=== PATIENT | female | born 1990 | race Caucasian/White ===

== ENCOUNTER 2023-10-11 08:00 | Outpatient (RCR) | payer MEDICAID, SELFPAY ==
--- NOTE | 2023-10-11 10:10 | BH.SGPN.GN ---
Behaviors/Verbalizations/Mental Status: [Patient was alert and oriented, casually dressed and groomed. Eye contact was good, motor activity normal, speech within normal limits. Affect congruent, mood depressed. Thoughts linear, logical, no signs of hallucinations or delusions. ] Client Response/Progress/Benefit: [Patient was engaged and open to the discussion and appeared to respond well to the group. Patient used active listening and gave feedback during group discussion. Patient identifies that setting boundaries protects your feelings and weeds out toxic people. Patient was engaged in the activity of identifying the reasons setting boundaries is hard. Patient reported that setting boundaries is hard for her because she is afraid of getting made fun of. Patient appeared to benefit from increasing awareness of healthy strategies to improve communication. Patient will continue IOP treatment to improve daily functioning, emotion management, and prevent decompensation] Narrative Note: []
--- NOTE | 2023-10-11 13:11 | BH.COMM_ITS ---
Communication Note Communication with Client Communication Note: Met with patient to complete initial paperwork and administer the CSSR-S screening and risk assessment. Patient is mild per the CSSR-S due to historical information and recent worsening of symptoms. Patient denied current SI but states frequent thoughts of . Patient reported that she has made preparations in the past when having SI such as cleaning up the house and stated she didn't want it to be messy if she followed through so her plan would be to overdose. Patient has a history with self-injurious behaviors for a 2 week period as a teenager. Therapist conducted lethal means counseling. Patient has numerous protective factors including her fianc?, some close friends, parents, siblings, and future plans. Discussed case with Dr. Arias and Patient will be admitted to [facility] treatment with a diagnosis of Major depressive disorder, recurrent, severe without psychosis.
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
--- NOTE | 2023-10-13 09:05 | BH.SGPN.GN ---
Behaviors/Verbalizations/Mental Status: [Patient was alert and oriented, appropriately dressed and groomed. Eye contact was good, motor activity normal, speech within normal limits. Affect congruent, mood calm. Thoughts linear, logical, no signs of hallucinations or delusions. Reviewed Patients symptom tracker and the patient reports depressed mood, anxiety/panic attacks, agitation/irritability/anger, self-harm urges, and thoughts/risk of suicide within normal limits.] Client Response/Progress/Benefit: [Patient was engaged and open to the discussion. Patient reported her mood to be ?in a weird mood?.?When patient was prompted about this, she said that she woke up in a good mood but discovered one of her friends had last night and doesn?t know how to feel about this. Patient reported that this was her stressor. Patients first win is that she had gotten up in a good mood today and felt ready to ?take on the world?. Patient second win is that she made a bunch of phone calls yesterday to schedule appointments that she has needed to schedule. Patient was interactive and respectful with other group members about their mental wins and stressors. Patient benefited from the discussion by listening to feedback and giving input on her peer?s stressors and mental health wins. Patient will continue with IOP treatment to help develop healthy skills, promote mood stability, and improve distress tolerance. ?] Narrative Note: []
--- NOTE | 2023-10-13 10:15 | BH.SGPN.GN ---
Behaviors/Verbalizations/Mental Status: [] Client alert and oriented, casually dressed and groomed. Eye contact good. Motor activity appropriate. Speech within normal limits. Affect congruent, mood euthymic. Thoughts linear, logical, no signs of hallucinations or delusions. Client Response/Progress/Benefit: [] Client responded well to session AEB sharing and listening attentively to others. Group provided examples of benefits of having social support, including: ability to process emotions with, security, and confidence. Client also participated in group discussion regarding the barriers to accessing support including personal examples like: toxic people, lack of communication, and over using certain supports. Client participated in experiential activity illustrating the impact communication, boundaries, and patience play in creating healthy support systems. Client appeared to benefit from increased knowledge of the benefits of social support and greater self-awareness. Will continue IOP tx to challenge negative thought patterns, reduce negative self-talk, and improve overall functioning. Narrative Note: []
--- NOTE | 2023-10-13 11:10 | BH.SGPN.GN ---
Behaviors/Verbalizations/Mental Status: [] Client alert and oriented, casually dressed and groomed. Eye contact good. Motor activity appropriate. Speech within normal limits. Affect congruent, mood euthymic. Thoughts linear, logical, no signs of hallucinations or delusions. Client Response/Progress/Benefit: [] Client was an active participant throughout AEB contributing to discussion, providing personal examples, and taking notes. Client processed emotions felt in the activity and how they coped in the moment. Client provided input during discussion on the types of support our supports can provide. Client able to identify current support system and barriers that get in the way of using supports by drawing out their own support net. Client reported after identifying what type of supports they receive; they gained awareness that they could benefit from more social supports. Client identified steps to achieve this by being more outgoing, not complaining, and being caution of toxic people in groups. Client shared increasing social supports will help them have friends with more things in common. Client seemed to benefit from identifying the type of support client needs to work on improving. Client recommended to continue IOP tx to prevent decompensation and increase positive thought patterns. Narrative Note: []
--- NOTE | 2023-10-13 11:45 | BH.NA ---
Physical Data Vital Signs Pulse Rate: 88 Blood Pressure: 151/86 Height/Weight Height: 1.8 m Weight:: 77.111 kg Weight in Pounds: 170.0 lbs Current Medication Compliance Medication Compliance Do you take your medication as prescribed?: Yes Nutritional History Appetite Nutritional Instructions: Describe your appetite:: Good Additional nutritional information:: Client denies recent change in weight or appetite. Functional Assessment Sleep Pattern Describe any problems with sleeping: Client states she had been sleeping up to 14 hours per day, but is now sleeping between 6-8 hours. Sensory/Communication Assess Communication Problems Do you have difficulty understanding what people are saying?: No Medical Problems/History Musculoskeletal Conditions Musculoskeletal: Other (See comments) (ongoing plantar fasciitis) Pain Assessment Do you have acute or chronic pain?: Yes (bilat feet) Surgical History Surgical History Have you had any surgeries? If so, list type and date:: Yes (right foot for plantar fasciitis, wisdom teeth) Substance Abuse Substance Abuse Please describe substance abuse in the last 30 days:: Client states she has a history of heavy liquor use, and states she no longer keeps liquor in her house or she will drink it. Client states she stopped using tobacco about 3 years ago. Client reports usually nightly marijuana use. Client states she drinks 1-2 cups of coffee 2-3 times per week. Mental Status Summary Mental Status Significant Findings/Observations on Appearance and Mood:: Client is alert and oriented x 4. Client is casually groomed. Client is cooperative with assessment. Client makes fair eye contact. Client has a somewhat restricted affect. Client makes logical associations and has normal processing. Client denies delusions/hallucinations. Client denies current SI. Suicide Assessment Suicidal Ideation Are you currently or have you been suicidal in the past?: Yes Suicidal Intentional Rating Scale (SIRS): Suicidal thoughts (past) (has a history of chronic passive SI, but denies SI this day) Physician Notification Past Psychiatric History MH Treatment Hx Past Psychiatric Medications:: Lyrica (made her dizzy), Wellbutrin, Buspar, Lexapro Age of first mental health symptoms: Client states she first took medication for her mental health around age 23. Describe (age, circumstance, etc) any past hospitalizations: None. Current providers for mental health treatment (counselor, psychiatrist, rehabilitation case coordinator, etc.): psychologist at [facility], [place], counseling at [facility] Fall Risk Assessment Age Age: Less than 60 Mental Status Mental Status: Willing & able to ask for assistance when needed Physical Status Physical Status: No problems Impairments Impairments: None Elimination Elimination: Continent AND independent Gait or Balance Gait or Balance: Walks independently Hx of Falls History of falls in the past 6 months: No known history Medications/Substances Psychotropics:: Antidepressants and Stimulants Others:: Diuretics Medications/substances used within the past 24 hours or ordered to administer: 3 or more of the medications/substances listed above Total Score Total Points:: 2 RN Summary of Impressions Impressions Recommendations Impressions: Psychiatric Issues: 1. Major depressive disorder, recurrent, severe without psychosis 2. Generalized anxiety disorder 3. ADHD 4. Borderline personality disorder Level of Care How do the client's current symptoms and functional deficits support need for this level of care?: Client is a transgender female that was referred to IOP after a discussion with their counselor about possibly seeking hospitalization for mental health. Client states she recently got bad news about medical debt they owe for foot surgery they had last year, and this caused their mental health to spiral. Client reports not being able to work partially due to foot pain from plantar fasciitis and was denied SSDI. Financial concerns are a big stressor. Client does report some crying episodes, irritability, ruminations, and panic attacks at times. Client denies current SI, but does report passive SI at times. IOP will promote gains and prevent further decompensation while providing social support and skills training.
[2023-10-13 12:11] VITALS: BP 151/86; PULSE 88
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
--- NOTE | 2023-10-13 12:28 | BH.DR.ITP ---
Initial Treatment Plan Patient Information Visit Information: ADMISSION DATE: EXPECTED LOS: 4-6 weeks Problems/Symptoms Problem #1:: Depression Symptom:: Sadness, guilt, hopelessness, worthlessness, low motivation, passive thoughts of , plan for suicide, low energy. Problem #2:: Anxiety Symptom:: Worry, rumination, panic attacks
--- NOTE | 2023-10-14 09:00 | BH.SGPN.GN ---
Behaviors/Verbalizations/Mental Status: [] Eye contact is good. Motor activity is appropriate. Appearance is casual. Speech is Appropriate. Mood is anxious. Affect is congruent. Thoughts are linear and logical. No evidence of psychosis. Reviewed daily check in sheet and no reports of suicidal ideations or intent. Client Response/Progress/Benefit: [] Pt was an active participant in group discussions. Attentive. Daily symptom tracker notes 2/5 for anxiety and depression. Able to identify mental health wins and healthy habits. Pt reports working on effective communication skills with support and setting boundaries. She identified grief related to recent losses and who this has impacted her overall mental health (friend completed suicide). Making a concerted effort to utilize skills, distractions, and support since starting IOP has seen benefits. Progress noted. Benefited from group support, encouragement, and feedback. Will continue in IOP to prevent decompensation, stabilize mood, and increase healthy coping. Narrative Note: []
--- NOTE | 2023-10-14 10:10 | BH.SGPN.GN ---
Behaviors/Verbalizations/Mental Status: []Pt alert and oriented, appropriate grooming/appearance. Eye contact good. Motor activity appropriate. Speech within normal limits. Affect congruent, mood anxious. Thoughts linear, logical, no signs of hallucinations or delusions. Client Response/Progress/Benefit: []Pt was an active participant in group discussions. Attentive during psychoeducation. Contributed during interactive discussions in which peers attempted to define crisis. Pt identified examples of potential crisis. Group also worked together to identify unhealthy responses to crisis which included; isolation, self-harm, substance abuse, avoidance, and distraction. Pt identified personal warning signs as lack of self-care, racing thoughts, and loss of interest. Benefited from increased understanding of crisis and awareness of personal responses to crisis. Pt will continue IOP tx to increasing healthy coping skills, improve distress tolerance, and prevent decompensation.
--- NOTE | 2023-10-14 11:10 | BH.SGPN.GN ---
Behaviors/Verbalizations/Mental Status: []Eye contact is good. Motor activity is appropriate. Appearance is casual. Speech is Appropriate. Mood is euthymic. Affect is congruent. Thoughts are linear and logical. No evidence of psychosis. Client Response/Progress/Benefit: []Pt was an active participant in group discussions. Attentive during psychoeducation. In small group pt along with peers developed an active plan for their crisis warning signs. Pt identified three crisis warning signs as well as an action plan for each. One crisis warning sign was lack of self-care. Pt identified coping skills to help with this such as: setting reminders, opposite action to get started, and reminding herself why this could help. Benefited from increased awareness of crisis warning signs and by developing crisis intervention strategies. Will continue in IOP to prevent decompensation, improve daily functioning, and gain healthy coping skills. ? Narrative Note: []
--- NOTE | 2023-10-18 09:05 | BH.SGPN.GN ---
Behaviors/Verbalizations/Mental Status: [Patient was alert and oriented, appropriately dressed and groomed. Eye contact was good, motor activity normal, speech within normal limits. Affect congruent, mood anxious. Thoughts linear, logical, no signs of hallucinations or delusions. Reviewed Patients symptom tracker and the patient reports depressed mood, anxiety/panic attacks, agitation/irritability/anger, self-harm urges, and thoughts/risk of suicide within normal limits.] Client Response/Progress/Benefit: [Patient was engaged and open to the discussion. Patient reported her mood to be ?anxious, frustrated, and optimistic?. Patients first win is that she has been practicing positive self-talk and being nicer to herself. Patients second win is that she has been communicating better with her partner and listening to his needs. Patient shared that her fianc? was a visual merchandise manager and wasn?t used to being around a lot of people and that she is ?super clingy?. Patients stressor is her living situation. She stated she is living with her parents and they ?make it known? that she is in the way. Patient was interactive and respectful with other group members about their mental wins and stressors. Patient benefited from the discussion by listening to feedback and giving input on her peer?s stressors and mental health wins. Patient will continue with IOP treatment to help develop healthy skills, promote mood stability, and improve distress tolerance. ] Narrative Note: []
--- NOTE | 2023-10-18 10:15 | BH.SGPN.GN ---
Behaviors/Verbalizations/Mental Status: []Pt alert and oriented, causally dressed and groomed. Eye contact fair. Motor activity appropriate. Speech within normal limits. Affect constricted, mood euthymic. Thoughts linear, logical, no signs of hallucinations or delusions. Client Response/Progress/Benefit: [] Pt engaged in group session AEB listening to others, taking notes throughout, and nodding head to others comments. Group attentive during psychoeducation about emotion regulation and dysregulation. Appeared to connect with scenarios reviewed in group on emotion regulation vs dysregulation. Engaged in activity, and pt reported stepping outsider her comfort zone to be the person who could not see. Pt shared she had to rely on her teammates to guide her and pt felt like she could trust them. ?Pt benefited from session by gaining an increased understanding on the importance of managing emotions. Pt to continue IOP to prevent decompensation, improve distress tolerance skills, and improve daily functioning. ? Narrative Note: []
--- NOTE | 2023-10-18 11:51 | BH.MDN_ITS ---
Multi-Disciplinary Note Note 45-min Individual: Time Started:: 11:05 Date: 10/18/23 Purpose of session/treatment goals addressed:: Purpose of session was to talk about the treatment plan and to check in on how she has been since starting the program. Symptoms/Behavior:: Patient was very fidgety and could not sit still for very long. Patient had avoidant eye contact when talking about her family and transitioning but tried to look at the therapist. Eye Contact:: Fair Motor Activity:: Restless Appearance:: Casual Speech:: Appropriate Mood:: Anxious Affect:: Congruent Thoughts:: Linear and No evidence of hallucinations/delusions noted Staff Interventions:: thought challenging, mindfulness skills, rapport building and treatment planning Client Response:: Therapist and Patient discussed how the patient has been since starting the program last week. Patient reported feeling excited to come back to the program and enjoys the content. She shared that she had pushed herself to do an activity as a volunteer which is not like her to do. Patient thinks that she feels as if she is already improving. Therapist and patient created the treatment plan goals and objectives and talked about her main s truggles she would like to work on would be her self-talk and depression/motivation. Patient stated that she currently knows some coping skills that she will actively use but sometimes they don't work very well if at all. Patient mentioned feeling some guilt from the of her friend last week but was not ready to talk about this. Patient also shared with the Therapist that some of her family members aren't as accepting as she led to believe in her intake. She believes some of her depressive symptoms and previous thoughts of may have something to do with this. Patient shared that her father still uses the wrong pronouns and uses her name which is her name that she no longer uses. Patient shared that they had only recently in July 2023 started using the correct pronouns and her new name. Patient shared she has been transitioning and out for 5 years now. Patient stated she does not feel suicidal or have thoughts of currently. Risks/Concerns:: No suicidal ideation or intent to harm as of this date. 10/18/2023. Progress Toward Goals/Plan:: Patient made progress as evidence by working with the therapist to identify treatment plan goals. Patient also was open and honest about discussions that could be hard and set boundaries on ones she was not ready to talk about yet. Patient was honest about her family support system and said she says they are really supportive in hopes that she will believe it. Patient still endorses in depressive symptoms, anxiety, and low motivation. Therapist recommends that the patient would benefit to continue IOP treatment at this time. Time Stopped:: 11:47
--- NOTE | 2023-10-18 11:52 | BH.MTP ---
Master Treatment Plan Psychiatric Diagnoses Psychiatric Diagnoses:: 1. Major depressive disorder, recurrent, severe without psychosis 2. Generalized anxiety disorder 3. ADHD 4. Borderline personality disorder Diagnosis Code(s):: F33.2, F41.1,F90.9, F60.3 Estimated LOS Estimated LOS (in weeks):: 6 Problem/Goal #1 Problem/Goal #1 Stated Goal:: Patient will increase mood stability by reducing hopelessness, passive suicidal ideation, and negative thinking patterns caused by MDD. Description of Barriers: Patient does not have a job and is unable to work currently due to physical pain which has been directly impacting her mental health. Patient often has thoughts of as a result. Patient reports negative thinking patterns, low motivation, and hopelessness. Functional Impact: The patient is a 33-year-old biological male who identifies as a transgender female who is single but has a 42-year-old male fianc? of 4 years who is supportive of the patient although they do not live together. She was referred to the [facility] behavioral health IOP by her therapist due to worsening symptoms of anxiety and depression that make it hard for her to function. She has had issues with this for the past 6 or 7 years but it has worsened in the past year since she was fired from her job due to ongoing mental and physical health conditions. Goal Relevant Strengths/Supports: Patient is motivated, connected with outpatient psychiatry, and has the support of her fianc? and mother. Objectives Objective #1: Stated Objective: Patient will learn and utilize 2-3 new coping strategies to better manage depressive symptoms and reduce suicidal ideations as shown by a decrease of DMS-5 symptoms for depression. Interventions: Through group and individual sessions, therapist will help patient identify triggers and warning signs of depression including emotional, physical, and behavioral changes. Therapist will teach patient various coping skills to manage symptoms additional to the ones the patient currently uses and give patient tangible resources to use to regulate emotions. Therapist will use cognitive restructuring techniques and help patient gain awareness of negative thoughts that reinforce guilt and depression. Therapist will provide psychoeducation on maintenance cycles and help patient learn ways to break unhealthy maintenance cycles. Therapist will help patient incorporate behavioral activation and assist patient in setting SMART goals. Discharge Criteria: Patient will have met this goal when she can report learning and using at least 2 new coping skills to manage depressive symptoms and reduce isolation. Additionally, patient will have met this goal when patient's DSM-5 scores for depression decrease Target Date: 11/22/23 Review Date: 11/01/23 Status: Ongoing Objective #2: Stated Objective: Patient will identify 2-3 anxiety triggers and 2 new coping skills to use when feeling anxious to manage anxiety as shown by reducing DSM-5 scores for anxiety Interventions: Therapist will provide education on anxiety, avoidance behaviors, and maintenance cycles. Therapist will help patient explore personal symptoms and warning signs of anxiety. Therapist will teach patient coping skills to improve emotional regulation, mindfulness, and distress tolerance to help patient cope with anxiety as daily maintenance and in the moment. Discharge Criteria: Patient will have accomplished this goal when she can identify at least 2 triggers and report using 2 coping skills to manage anxiety for both halfway maintenance and in the moment. Additionally, patient will have accomplished this goal AEB reduction of DSM-5 scores for anxiety. Target Date: 11/22/23 Review Date: 11/01/23 Status: Ongoing Problem/Goal #2 Problem/Goal #2 Stated Goal:: Patient will increase awareness of negative self-talk by reducing negative thinking patterns and reminiscing that can be a symptom of MDD and CINDY. Description of Barriers: Patient has a history of negative self-talk which has been reinforced by select family members. Patient has many things that she loves to do and wishes she could do more however, her physical pain in her feet prevent her from doing things. Patients father makes it seem like she's faking the pain which makes her have negative thinking and negative self-talk. Patient compares herself to other and her past self on their abilities and how she cannot do them all the time if at all. Functional Impact: The patient is a 33-year-old biological male who identifies as a transgender female who is single but has a 42-year-old male fianc? of 4 years who is supportive of the patient although they do not live together. She was referred to the [facility] behavioral health IOP by her therapist due to worsening symptoms of anxiety and depression that make it hard for her to function. She has had issues with this for the past 6 or 7 years but it has worsened in the past year since she was fired from her job due to ongoing mental and physical health conditions. Goal Relevant Strengths/Supports: Patient is motivated, connected with outpatient psychiatry, and has the support of her fianc? and mother. Objectives Objective #1: Stated Objective: Patient will identify at least 2-3 negative self-talk messages used to reinforce negative core beliefs, worthlessness, and isolation and replace thoughts with balanced, realistic messages. Interventions: Therapist will help patient identify distorted, negative beliefs about self and replace with more realistic, affirmative messages. Therapist will use CBT and DBT to help patient increase insight to the connection between thoughts, emotions, and behaviors. Therapist will encourage patient to practice thought challenging. Discharge Criteria: Patient will have achieved this goal when can verbalize at least 2 cognitive distortions and effectively replace those thoughts with affirmative messages. Target Date: 11/22/23 Review Date: 11/01/23 Status: Ongoing Objective #2: Stated Objective: Patient will practice daily affirmations at least 2-3 times a day in order to retrain her brain to help reduce feelings of worthlessness and low self-esteem. Interventions: Therapist will help patient identify helpful affirmations with the client that would be most beneficial everyday so that the client may practice them. Therapist will use CBT and DBT skills to help patient decipher what she knows and what she feels and how that relates to inner dialogue. Therapist will encourage patient to practice mindfulness skills. Discharge Criteria: Patient will have achieved this goal when can patient can verbalize 2 ways her affirmations helped retrain her brain by herself by being mindful. Target Date: 11/22/23 Review Date: 11/01/23 Status: Ongoing
--- NOTE | 2023-10-20 09:05 | BH.SGPN.GN ---
Behaviors/Verbalizations/Mental Status: [Patient was alert and oriented, appropriately dressed and groomed. Eye contact was good, motor activity normal, speech within normal limits. Affect congruent, mood content. Thoughts linear, logical, no signs of hallucinations or delusions. Reviewed Patients symptom tracker and the patient reports depressed mood, anxiety/panic attacks, agitation/irritability/anger, self-harm urges, and thoughts/risk of suicide within normal limits.] Client Response/Progress/Benefit: [Patient was engaged and open to the discussion. Patient reported her mood to be ?anxious, sad, and happy?. Patients first win is that today her alarm went off and she almost stayed in bed until last minute but instead forced herself to get up and get ready. Patient admitted she has been having trouble motivating herself to do things and isolating. Patients second win is that she is working on a craft she is making for her spider. Patient said she makes ?jungle gym? courses for her spider to play in. Patients stressor is that she has been keeping herself in bed on the weekends and isolating from her family. Patient has been trying to not do this but hasn?t ?really been that successful? lately. Patient was interactive and respectful with other group members about their mental wins and stressors. Patient benefited from the discussion by listening to feedback and giving input on her peer?s stressors and mental health wins. Patient will continue with IOP treatment to help develop healthy skills, promote mood stability, and improve distress tolerance. ] Narrative Note: []
--- NOTE | 2023-10-20 10:10 | BH.SGPN.GN ---
Behaviors/Verbalizations/Mental Status: []Pt alert and oriented, casually dressed and groomed. Eye contact good. Motor activity appropriate. Speech within normal limits. Affect congruent, mood anxious and dysthymic. Thoughts linear, logical, no signs of hallucinations or delusions. Client Response/Progress/Benefit: [] Pt active participant AEB pt providing input throughout group discussion. Pt attentive during psychoeducation about defense mechanisms. Showed engagement during small group discussions and helped group identify which defense mechanisms were maladaptive, adaptive, or ?somewhere in the ling.? Pt started to work with group on identifying how each defense mechanism can impact mental health and gave examples. Pt was quiet but engaged during small group discussion, providing examples of denial and rationalization. ?Seemed to benefit from gaining awareness about the different defense mechanisms. Pt to continue IOP tx to prevent decompensation, improve daily functioning, and increase mood stability. ? Narrative Note: []
--- NOTE | 2023-10-20 11:10 | BH.SGPN.GN ---
Behaviors/Verbalizations/Mental Status: []Pt alert and oriented, neatly dressed and groomed. Eye contact good. Motor activity appropriate. Speech within normal limits. Affect congruent, mood anxious. Thoughts linear, logical, no signs of hallucinations or delusions. Client Response/Progress/Benefit: [] Pt responded well to session, participating in activity and small group discussion. Group reviewed the rest of the defense mechanisms and discussed how these are adaptive, maladaptive, or somewhere in the ling. Pt participated in the experiential activity which encouraged pts to draw a castle that portrayed their different defense mechanisms. Pt's defense mechanisms included anticipation and rationalization. Pt gained awareness that anticipation helps prevent more stress from happening at times, but pt can also overthink and make herself more anxious. Pt listened to clinical leader teach different skills to help pt?s cope with or change their defense mechanisms. Pt appeared to benefit from gaining insight to the different defense mechanisms and learning coping skills. Pt will continue IOP tx to prevent decompensation, improve daily functioning, and reduce negative thinking patterns. ?? Narrative Note: []
--- NOTE | 2023-10-20 11:51 | PCM.BH.PN_ITS ---
Progress Note Progress Note: History of Present Illness/Interim History: The patient is a 33-year-old biological male who identifies as a transgender female who is seen in follow-up at the [facility] behavioral health IOP. The patient requested to see me today as he feels he did not describe his moods or sleep accurately at the initial eval 1 week ago. The patient told staff that he had questions about medications and wanted to see me but he denies questions about medications at this time. He states that he wanted to sleep a lot normally but at times he only sleeps 5 hours a night but he states that on average in the last week or 2 he has slept 7 or 8 hours average per night. He says that sometimes he does fe el in a better mood than others and at times feels on top of the world but denies any symptoms consistent with hypomania or mickie. The rest of the symptoms are unchanged from 1 week ago and the patient continues to endorse sadness, hopelessness, lots of self-hatred, decreased motivation, guilt and passive thoughts of . The patient still has the chronic plan that if she did ever try to commit suicide she would do it by overdose or carbon monoxide poisoning. Patient denies passive or active suicidal ideation, homicidal ideation, hallucinations or delusions. Current Psychiatric Medications: [] Cymbalta 30 mg twice daily for total of 60 mg daily.; Methylphenidate 20 mg p.o. twice daily; Spravato for 1-1/2 years now which was recently increased to twice a week 2 weeks ago. Mental Status Examination: [] Patient is a 33-year-old biological male who identifies as a transgender female. The patient is dressed somewhat feminine and is ambulatory with a normal gait and has no psychomotor agitation or retardation. She is cooperative during the interview. Eye contact is good and speech is normal rate and rhythm and fluent with no pressure. Mood is depressed and anxious. Thought process is goal-directed and organized. Thought content: The patient is hopeful that the IOP will help her still. There is evidence of passive thoughts of but there is no evidence of suicidal ideation, homicidal ideation, hallucinations or delusions. There is evidence of a chronic plan for suicide. Reality testing is intact. Intelligence is average. Judgment is intact. Insight is limited but some present. Impulsivity is high. Diagnoses: [] 1. Major depressive disorder, recurrent, severe without psychosis 2. Generalized anxiety disorder 3. ADHD 4. Borderline personality disorder Plan: [] The patient will continue the IOP at [facility] as the structure, support, education and group therapy will hopefully prevent worsening of the patient's symptoms which could require hospitalization. She felt safe during the interview and if it anytime she does not feel safe she will let us know or go to the emergency room. No medication changes were made today as they were recently changed and the patient is receiving weekly Spravato treatment as an outpatient. 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 She will continue to follow-up with her outpatient providers and I will see the patient in follow-up on a regular basis while she is in the IOP.
--- NOTE | 2023-10-21 09:01 | BH.SGPN.GN ---
Behaviors/Verbalizations/Mental Status: []Client alert and oriented, casual appearance. Eye contact fair. Motor activity appropriate. Speech within normal limits. Affect congruent, mood anxious. Thoughts linear, logical, no signs of hallucinations or delusions. Reviewed client?s symptom tracker, no risk for suicidal ideation, plan, or intent. Client Response/Progress/Benefit: []Client responded well to session AEB listening to others and sharing thoughts/feelings. Client stated feeling tired, anxious, and positive today. Client identified mental health positive as doing well with keeping a schedule and trying to be more positive in the morning. Client stated she is feeling excited to spend time with her jumping spider today. Client stated continued challenges stressor is organizing and keeping up with the cleaning. Appeared to benefit from support from peers. Will continue IOP tx to increase healthy coping skills, improve daily functioning, and prevent decompensation.
--- NOTE | 2023-10-21 10:10 | BH.SGPN.GN ---
Behaviors/Verbalizations/Mental Status: []Pt alert and oriented, neatly dressed and groomed. Eye contact good. Motor activity appropriate. Speech within normal limits. Affect congruent, mood content. Thoughts linear, logical, no signs of hallucinations or delusions. Client Response/Progress/Benefit: [] Pt took notes and contributed occasionally. Attentive during psychoeducation on growth mindset. Participated during the activity. Interactive group discussion on growth mindset in which group verbalized their current fixed mindsets and how they affect their mental health. Pt shared common fixed mindset thoughts they have which included I'm never getting better; I?m not good enough; this is too hard?. These thoughts lead to feeling and staying stuck, not letting supports help, and getting defensive with feedback. Pt stated they have personally struggled with telling herself that things are impossible which makes pt want to quit. Pt benefited from increased awareness of growth mindset and fixed thoughts and how fixed thoughts impact their mental health. Will continue IOP tx to prevent decompensation, improve daily functioning, and improve emotional regulation skills. ? Narrative Note: []
--- NOTE | 2023-10-21 11:10 | BH.SGPN.GN ---
Behaviors/Verbalizations/Mental Status: []Pt alert and oriented, casually dressed and groomed. Eye contact good. Motor activity appropriate. Speech within normal limits. Affect congruent, mood anxious and depressed. Thoughts linear, logical, no signs of hallucinations or delusions. Client Response/Progress/Benefit: [] Pt was an active participant during activity and discussion AEB providing some input when prompted, connecting with peers, as well as taking notes throughout. Pt did well to remain attentive and participate as group worked on identifying characteristics and benefits of adopting a growth mindset. Worked with fellow participants in reframing the example fixed thoughts into growth mindset thoughts. Pt worked on changing own fixed thought of The world sucks to a more growth mindset thought of Even if the world is harsh at times, I know there are good people out there. Receptive of discussing benefits of growth mindset and brainstorming strategies for prompting growth-mindset. Pt appeared to benefit from working in small groups to challenge own thoughts and help peers. Pt will continue IOP tx to improve mood stability, reduce distorted thoughts, and improve daily functioning. Narrative Note: []
--- NOTE | 2023-10-26 09:05 | BH.SGPN.GN ---
Behaviors/Verbalizations/Mental Status: [] Eye contact is good. Motor activity is appropriate. Appearance is casual. Speech is Appropriate. Mood is depressed. Affect is congruent. Thoughts are linear and logical. No evidence of psychosis. Reviewed daily check in sheet and no reports of suicidal ideations or intent. Client Response/Progress/Benefit: [] Pt was an active participant in group discussions. Attentive. Daily symptom tracker notes 2/5 for anxiety and depression. Emotion for today is tired and anxious. Able to identify mental health wins and healthy habits. Pt report struggle with energy and motivation this AM stating I wanted to go back to bed. Utilized skills such as opposite action and behavioral activation which has helped increase purppse, meaning and sense of accomplishment through completion of daily tasks around his house. States rough weekend however did not elaborate to group. Overall a very brief and superficial check in today. Narrative Note: []
--- NOTE | 2023-10-26 10:10 | BH.SGPN.GN ---
Behaviors/Verbalizations/Mental Status: []Client alert and oriented, casually dressed and groomed. Eye contact fair. Motor activity appropriate. Speech within normal limits. Affect constricted, mood dysthymic. Thoughts linear, logical, no signs of hallucinations or delusions. Client Response/Progress/Benefit: []Client receptive to session AEB providing input throughout, listening attentively to others, and taking notes. Attentive throughout psychoeducation on the cognitive triangle and maintenance cycles. Engaged in group discussion reviewing the impact of daily activities and behaviors in either reinforcing unhealthy maintenance cycles and depression or assisting in reducing symptoms (?down? vs ?up? activities). Client identified common ?down? activities they engage in as: Negative self-talk, not doing chores, isolation, and lack of self care. Common ?Up? activities client identified included: Doing make-up, being around friends, coloring, affirmations, and since being spiritual. Appeared to benefit from increased awareness of current behaviors and impact these have on mental health. Recommended to continue IOP to increase consistent use of healthy coping skills, challenge distortions, and prevent decompensation.
--- NOTE | 2023-10-26 11:15 | BH.SGPN.GN ---
Behaviors/Verbalizations/Mental Status: []Eye contact is fair to good. Motor activity is appropriate. Appearance is disheveled. Speech is Appropriate. Mood is depressed. Affect is constricted. Thoughts are linear and logical. No evidence of psychosis. Client Response/Progress/Benefit: [] Pt responded well to session, attentive and engaged in group discussions and activity. Group discussed values and the benefits that knowing one's values can have on one's mental health. Pt explored own values and identified personal top values. Pt stated a personally important value is personal development and employment. Pt set a goal to improve engagement in this value. Goal identified as looking into potential jobs that will accommodate her disabilities. Pt appeared to benefit from exploring values and creating a weekly goal. Pt also reported benefitting from the activity and the group encouragement today. Will continue in IOP to prevent decompensation, improve daily functioning, and reduce isolation. ? Narrative Note: []
--- NOTE | 2023-10-27 09:00 | BH.SGPN.GN ---
Behaviors/Verbalizations/Mental Status: [Patient was alert and oriented, appropriately dressed and groomed. Eye contact was good, motor activity normal, speech within normal limits. Affect congruent, mood anxious. Thoughts linear, logical, no signs of hallucinations or delusions. Reviewed Patients symptom tracker and the patient reports depressed mood, anxiety/panic attacks, agitation/irritability/anger, self-harm urges, and thoughts/risk of suicide within normal limits.] Client Response/Progress/Benefit: [Patient was engaged and open to the discussion. Patient reported her mood to be ?anxious but happy?. Patients first win is that she has been very motivated the past couple of days and has cleaned the carpets in her room. Patients second win is that she has stated the process of growing a type of fungus to create a tonic that helps her health. Patients stressor is that since she has been so active the past couple of days, her foot syndrome has been hurting more today which feels a little discouraging. Patient was interactive and respectful with other group members about their mental wins and stressors. Patient benefited from the discussion by listening to feedback and giving input on her peer?s stressors and mental health wins. Patient will continue with IOP treatment to help develop healthy skills, promote mood stability, and improve distress tolerance. ] Narrative Note: []
--- NOTE | 2023-10-27 10:10 | BH.SGPN.GN ---
Behaviors/Verbalizations/Mental Status: [] Eye contact is good. Motor activity is appropriate. Appearance is casual. Speech is Appropriate. Mood is anxious and depressed. Affect is congruent. Thoughts are linear and logical. No evidence of psychosis. Client Response/Progress/Benefit: [] Pt actively participated in and was engaged during experiential activity. Able to relate activity to group topic of FOF, interacting with fellow participants throughout. Engaged during interactive discussion on what failure means to the group in which peers identified and defined failure. Group was able to identify impact of fear of failure on mental health identifying that it can cause isolation, procrastination, self-sabotage, and negative self-talk?. Pt described struggling with isolation and not allowing herself to feel hopeful due to FOF in the past. Attentive during interactive discussion on the role that FOF plays in mental wellness, depression, anxiety, and growth. Benefited from increased awareness of how the role that FOF plays in mental health and decision-making. Will continue in IOP to prevent decompensation, increase healthy coping, improve self-care, and to stabilize mood. Narrative Note: []
--- NOTE | 2023-10-27 13:47 | BH.MDN_ITS ---
Multi-Disciplinary Note Note 45-min Individual: Time Started:: 11:15 Date: 10/27/23 Purpose of session/treatment goals addressed:: To discuss barriers to her working, challenging negative thoughts, and identifying strengths and challenging self-talk. Eye Contact:: Good Motor Activity:: Appropriate Appearance:: Casual Speech:: Appropriate Mood:: Anxious Affect:: Congruent Thoughts:: Linear and No evidence of hallucinations/delusions noted Staff Interventions:: thought challenging, mindfulness skills, rapport building and strengths perspective Client Response:: Therapist and Patient discussed some of the clients biggest stressors which was not being able to work. Therapist asked the Patient to describe the barriers to her finding and obtaining a job. 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 Therapist and Patient talked about different types of jobs the Patient could do and the possibility of working from home. Therapist asked the Patient about her current living situation and if this was the best option for her at this present time. Patient stated for now she must live with her parents and cope with the feelings this brings until she can afford to move. Therapist and Patient talked about what has been going well the past couple of days which the client stated she has been more active and properly taking care of her hygienic needs. Patient stated that on the days where her feet hurt her the most, are the days that are hardest to deal with and it is hard to stay positive. Risks/Concerns:: No suicidal ideation or intent to harm as of this date. 10/27/2023 Progress Toward Goals/Plan:: Patient made progress as evidence by working with the therapist to identify barriers to her employment and finances. Patient also was open and honest about her thoughts and feelings on her current living situation and not being able to find a job that is accommodating. Patient was honest about her family support system and shared that her family often times makes her feel as if she is in the way. Patient made a goal of finishing her paperwork for [employer] to help her find a job and stated she would apply for the [employer] program online. Patient still endorses in depressive symptoms, anxiety, and low motivation. Therapist recommends that the patient would benefit to continue IOP treatment at this time. Time Stopped:: 12:00
== END 2023-10-31 23:59 ==
LOC: BHIOP 08:00
PROVIDERS: Referring Provider Psychiatry & Neurology Psychiatry; Visit Provider Psychiatry & Neurology Psychiatry
DX: F33.2 Major depressive disorder, recurrent severe without psychotic features (principal); F41.1 Generalized anxiety disorder; F90.9 Attention-deficit hyperactivity disorder, unspecified type; F60.3 Borderline personality disorder
CPT/HCPCS: 90792; 99213; H2012; H2020; S9480; T1002; 90834

== ENCOUNTER 2023-11-01 07:14 | Outpatient (RCR) | payer MEDICAID, SELFPAY ==
[2023-11-01 00:51] VITALS: BP 151/86; PULSE 88
--- NOTE | 2023-11-01 09:00 | BH.SGPN.GN ---
Behaviors/Verbalizations/Mental Status: [Patient was alert and oriented, appropriately dressed and groomed. Eye contact was good, motor activity normal, speech within normal limits. Affect congruent, mood anxious. Thoughts linear, logical, no signs of hallucinations or delusions. Reviewed Patients symptom tracker and the patient reports depressed mood, anxiety/panic attacks, agitation/irritability/anger, self-harm urges, and thoughts/risk of suicide within normal limits.] Client Response/Progress/Benefit: [Patient was engaged and open to the discussion. Patient reported her mood to be ?stressed and anxious?. Patients first win is that Easter ?went fine? yesterday and she got some more organization done in her room. Patients second win was that she used opposite action this morning and instead of calling in and saying she was sick, so she didn?t have to come, she came anyways and feels better about it. Patient said she would have woken up later and felt worse for not coming. Patients stressor is still her living situation and feel like she is a bother to her family. Patient was interactive and respectful with other group members about their mental wins and stressors. Patient benefited from the discussion by listening to feedback and giving input on her peer?s stressors and mental health wins. Patient will continue with IOP treatment to help develop healthy skills, promote mood stability, and improve distress tolerance. ] Narrative Note: []
--- NOTE | 2023-11-01 10:10 | BH.SGPN.GN ---
Behaviors/Verbalizations/Mental Status: []Pt alert and oriented, casually dressed and groomed. Eye contact good. Motor activity appropriate. Speech within normal limits. Affect congruent, mood content. Thoughts linear, logical, no signs of hallucinations or delusions. Client Response/Progress/Benefit: [] Pt connected with topic of anxiety and participated throughout, providing input and taking notes. Participated throughout interactive discussion defining anxiety and identifying cognitive and physiological symptoms of anxiety. Group discussed how anxiety can prevent them from trying new things. Pt identified physical signs of anxiety as increased heart rate, itchiness, and sweaty. Pt identified safety behaviors as cancelling plans, sleeping, and distracting with others. Benefited from increased awareness and insight on anxiety and its impact. Pt will continue IOP tx to prevent decompensation, improve daily functioning, and increase coping repertoire. Narrative Note: []
--- NOTE | 2023-11-01 11:15 | BH.SGPN.GN ---
Behaviors/Verbalizations/Mental Status: []Pt alert and oriented, disheveled appearance. Eye contact fair. Motor activity appropriate. Speech within normal limits. Affect congruent, mood depressed. Thoughts linear, logical, no signs of hallucinations or delusions. Client Response/Progress/Benefit: [] Pt was an active participant AEB pt providing input and listening attentively to peers. Attentive during psychoeducation on mindfulness coping skills and their impact on reducing anxiety and improving overall mental health wellness. Group was able to identify self-soothing and mind-based coping skills which included: 5-senses, meditation, deep breathing, journaling, thought challenging, and progressive muscle relaxation. Pt also participated with peers in practicing mindfulness skills in session. Pt would like to work on using a calendar to keep track of her appointments and tasks. Appeared to benefit from increasing repertoire of anxiety reduction skills. Pt will continue in IOP tx to prevent decompensation, improve self-care practices, and reduce negative thinking patterns. Narrative Note: []
--- NOTE | 2023-11-01 13:21 | BH.TPR ---
Treatment Plan Review Demographics Date of Admission:: 10/11/23 Date of Treatment Plan Review:: 11/01/23 Admitting Diagnoses:: 1. Major depressive disorder, recurrent, severe without psychosis 2. Generalized anxiety disorder 3. ADHD 4. Borderline personality disorder Diagnosis Code(s):: F33.2, F41.1,F90.9, F60.3 Current Diagnoses:: 1. Major depressive disorder, recurrent, severe without psychosis 2. Generalized anxiety disorder 3. ADHD 4. Borderline personality disorder Diagnosis Code(s):: F33.2, F41.1,F90.9, F60.3 Patient Status Patient's Response to Treatment:: Patients response to treatment is fair as evidence by the patient verbalizing that she feels that she has made progress. However, patients DSM-5 overall scores increased slightly. Patient stated she was shocked to here this but still feels that things are better. Patient has been consistent with her goals and reports to be practicing her skills daily. Patient is interactive in not only group sessions but as well as in her individual session. Status of Current Problems and Symptoms: Patient endorses feelings of stress, depression, and anxiety. Patient has been struggling with living at her parents house and moving her room to the basement where there is little to no privacy. Patient stated her environment is a big and main factor in her symptoms and is aware and admits that her choice to move to the basement is causing some of these worsening symptoms. However, patient states that her ability to cope with said symptoms have improved hence why she feels she has made progress. Progress Problem #1: Problem Name:: Depression, thoughts of , anxiety Status of Goals:: Objective 1 is in progress. Per the DSM-5 scale, her depression score increased by 1 point, and her anxiety score increased by 3 points. Patient reported that although her symptoms of worsened, her ability to cope with them she feels has improved. Patient wanted to start using her coping skills more efficiently by either learning new ones or enhancing old ones. Objective 2 is in progress. Patient has identified that a big trigger and stressor is her living environment. However, the patient believes she has no other option other than living with her parents and is resistant to moving. Team Recommendations:: Treatment team recommends that patient continue working on this goals so patient can continue to manage symptoms. Patient is recommended to weigh the pros and cons to her environmental situation when she is feeling down and to reach out to her fianc? when she feels she needs support. Problem #2: Problem Name:: Negative Self-Talk and Thinking Patterns Status of Goals:: Objective 1 is in progress. Per the DSM-5 scale, her mickie has decreased by 1 point, her anger has decreased by 2 points, and her thoughts of actual harm have reduced to 0 points. Patient reported that she has been consciously reaffirming herself daily when negative self-talk starts. She said she talks to herself more like a friend than belittling everything that she does. Objective 2 is in progress. Patient has acknowledged that her thinking patterns are an automatic response to external events in some cases and has been challenging these thoughts the knowledge to help retrain her brain. Patient believes this has helped herself be more successful using her coping skills in general. Team Recommendations:: Treatment team recommends that the patient continue to work on this goal to maximize her ability to speak kindly to herself. Patient is recommended to thought challenge in the moment and write or speak affirmations.
--- NOTE | 2023-11-03 09:00 | BH.SGPN.GN ---
Behaviors/Verbalizations/Mental Status: [Patient was alert and oriented, appropriately dressed and groomed. Eye contact was good, motor activity normal, speech within normal limits. Affect congruent, mood anxious. Thoughts linear, logical, no signs of hallucinations or delusions. Reviewed Patients symptom tracker and the patient reports depressed mood, anxiety/panic attacks, agitation/irritability/anger, self-harm urges, and thoughts/risk of suicide within normal limits.] Client Response/Progress/Benefit: [Patient was engaged and open to the discussion. Patient reported her mood to be ?anxious?. Patients stressor is that her dad is having surgery today and that means her dad will be home for the next couple of days. Patient isn?t worried about the surgery she said but that she will have less privacy. Patients first win is that although she had little sleep last night, she used opposite action and came to group although she wanted to lie and say she was sick. Patients second win is that she has been practicing being nicer to herself and talking to herself more as a friend. Patient was interactive and respectful with other group members about their mental wins and stressors. Patient benefited from the discussion by listening to feedback and giving input on her peer?s stressors and mental health wins. Patient will continue with IOP treatment to help develop healthy skills, promote mood stability, and improve distress tolerance. ] Narrative Note: []
--- NOTE | 2023-11-03 10:10 | BH.SGPN.GN ---
Behaviors/Verbalizations/Mental Status: [] Eye contact is good. Motor activity is appropriate. Appearance is casual. Speech is Appropriate. Mood is anxious/irritable. Affect is congruent. Thoughts are linear and logical. No evidence of psychosis. Client Response/Progress/Benefit: [] Pt receptive to session AEB contributing to small group discussion, as well as listening attentively to others, and taking notes. Worked with group to brainstorm the positive and negative aspects of stress on physical and mental health. Group did well to identify the benefits of stress as well as the impact of distress on performance, relationships, and mental health. Pt identified their personal top stressors as: politics, mean people, relationships, health, and money. Pt seemed to benefit from increased awareness of current stressors and impact stress has on mental health. Will continue in IOP to prevent decompensation, increase healthy coping, and improve functioning. Narrative Note: []
--- NOTE | 2023-11-05 09:05 | BH.SGPN.GN ---
Behaviors/Verbalizations/Mental Status: [] Eye contact is good. Motor activity is appropriate. Appearance is casual. Speech is Appropriate. Mood is depressed. Affect is congruent. Thoughts are linear and logical. No evidence of psychosis. Reviewed daily check in sheet and pt reports 1/5 for suicidal ideations and 0/5 for intent. Long-standing hx of passive SI. Client Response/Progress/Benefit: [] Pt participated at times during the group discussion. Attentive. Engaged and laughing at times with peers. Daily symptom tracker notes 2/5 for depression/anxiety and 3/5 for irritability. Therapist asked pt if she would like to share and she stated I need more time to process. Therapist came back to patient later to ask if she would like to share again and she stated everything has already been discussed. Appeared in good spirits however did not elaborate any further. Limited progress noted today. Benefited from group support, encouragement, and feedback. Will continue in IOP to prevent decompensation, increase healthy coping skills, and improve functioning. Narrative Note: []
--- NOTE | 2023-11-05 10:15 | BH.SGPN.GN ---
Behaviors/Verbalizations/Mental Status: [] Eye contact is good. Motor activity is appropriate. Appearance is casual. Speech is Appropriate. Mood is depressed, apathetic. Affect is congruent. Thoughts are linear and logical. No evidence of psychosis. Client Response/Progress/Benefit: []Pt engaged participant AEB listening to others, engaging in activity, and providing feedback at times. Attentive during psychoeducation and provided insight into obstacles that impede mental wellness. Pt shared with group current mental health reality and desired mental health reality. Stating she would like to have healthier supports and more direction. Identified barriers to desired reality include: concentration, low motivation, and perspective. Benefited from taking look at current mental health state and obstacles for progress. Pt to continue IOP tx to improve mood stability, reduce reliance on maladaptive coping, and prevent decompensation. Narrative Note: []
--- NOTE | 2023-11-05 11:15 | BH.SGPN.GN ---
Behaviors/Verbalizations/Mental Status: [] Eye contact is fair. Motor activity is appropriate. Appearance is casual. Speech is Appropriate. Mood is dysthymic. Affect is constricted. Thoughts are linear and logical. No evidence of psychosis Client Response/Progress/Benefit: [] Pt was an engaged participant in group discussion and activity. Worked with group to identify strategies to help overcome barriers and obstacles to desired reality. Group developed strategies for the common barriers. Identified personal barriers to desired reality and choose one obstacle to work. Pt stated she wants to work on barrier of negative self-talk by starting to say positive affirmations and say nice things out herself. Pt seemed to benefit from increased repertoire of healthy coping skills/strategies to overcome common barriers to moving forward. Pt is to continue IOP to increase healthy coping skills, challenge distortions, and prevent decompensation.
--- NOTE | 2023-11-08 09:00 | BH.SGPN.GN ---
Behaviors/Verbalizations/Mental Status: [Patient was alert and oriented, appropriately dressed and groomed. Eye contact was good, motor activity normal, speech within normal limits. Affect congruent, mood sad. Thoughts linear, logical, no signs of hallucinations or delusions. Reviewed Patients symptom tracker and the patient reports moderate to severe in depressed mood, moderate in anxiety/panic attacks, agitation/irritability/anger, low/moderate in thoughts of suicide and low in self-harm urges. Patient does not report risk of suicide. Patient will be checked in on to assess for safety.] Client Response/Progress/Benefit: [Patient was engaged and open to the discussion. Patient reported her mood to be ?depressed?. Patients first win is that she came to group although she has been in a lower mindset. Patients second win is that she has been doing her best not to give up. Patients stressor is living with her family still because she is not getting a lot of privacy. Patient was interactive and respectful with other group members about their mental wins and stressors. Patient benefited from the discussion by listening to feedback and giving input on her peer?s stressors and mental health wins. Patient will continue with IOP treatment to help develop healthy skills, promote mood stability, and improve distress tolerance. ] Narrative Note: []
--- NOTE | 2023-11-08 11:10 | BH.SGPN.GN ---
Behaviors/Verbalizations/Mental Status: []Pt alert and oriented, casually dressed and groomed. Eye contact fair. Motor activity appropriate. Speech within normal limits. Affect congruent, mood dysthymic. Thoughts linear, logical, no signs of hallucinations or delusions. Client Response/Progress/Benefit: [] Pt was engaged during discussion and willing to complete the worksheet challenging them to develop a personal SMART goal. Pt chose the goal of finishing organizing room and clean once a week. Pt stated this will declutter her mind. Pt identified procrastination, motivation, and low energy as potential barriers. Identified solutions such as making schedule, setting reward system, and having good sleep routine. Pt receptive to identifying solutions for these barriers and willing to begin working on this goal. Benefited from this group by developing a short-term SMART goal related to mental health. Will continue IOP tx to improve daily functioning, increase healthy coping, and prevent decompensation.
--- NOTE | 2023-11-08 13:20 | BH.MDN_ITS ---
Multi-Disciplinary Note Note 45-min Individual: Time Started:: 10:20 Date: 11/08/23 Purpose of session/treatment goals addressed:: talking about progress with the treatment plan, overall functioning, and reflection of treatment. Eye Contact:: Fair Motor Activity:: Appropriate Appearance:: Casual Speech:: Appropriate Mood:: Anxious Affect:: Congruent Thoughts:: Linear and No evidence of hallucinations/delusions noted Staff Interventions:: thought challenging, mindfulness skills, rapport building and treatment planning Client Response:: Therapist and Patient in previous session talked about the Patients overall mood and the increase in her scores on her DSM-5 self rated sheet. Patient stated she was shocked to hear that the overall score increased because she stated she thought she was doing better. Therapist and Patient talked about how she could be doing better while still having slightly elevated scores in some areas and decreases in others. Patient had missed her Sparato shot last week would could be contributing her decrease in ability to manage stress and have a clearer head space. Patient stated she has been friendlier to herself and practicing her affirmations. Patient shared that she will be having bottom surgery in less than 60 days. Patient and Therapist talked about her emotions around this and her support systems. Patient admitted her family is unaware she is having this surgery because it is none of their business and they haven't asked. Patient shared that if they find out she wouldn't hide it but didn't know what she would say to them. Patient stated she was still struggling with feeling like she is in the way at her parents house. Therapist and patient talked about ways she could cope with this by weighing the options of where her room is in the house and with thought challenges. Patient shared that she looks forward to coming to group because of her isolation and how she wants to find ways to be more integrated with people after discharge. Patient and Therapist talked about discharge in 2 weeks or so and the patient seemed open to this idea. Risks/Concerns:: No suicide ideation or risk as of this date. 11/08/2023 Progress Toward Goals/Plan:: Patient made progress as evidence by working with the therapist to challenge her thoughts on the increase of her overall scores on her DSM-5 assessment sheet. Patient also was open and honest about her thoughts and feelings on her current living situation and ways to cope with the feelings. Patient shared her thoughts and feelings on her obtaining bottom surgery and plans on creating a plan of what to say to her family if they find out before she is ready. Patient accomplished her goal from last session and submitted her paperwork for [employer] to help her find a job. She stated she would contact the [employer] program today by calling the number provided by the website. Patient made a goal of scheduling her appointment with her doctor to obtain her Spar[employer] shot. Patient still endorses in depressive symptoms, anxiety, and low self-esteem. Therapist recommends that the patient would benefit to continue IOP treatment at this time. Time Stopped:: 11:05
--- NOTE | 2023-11-09 09:05 | BH.SGPN.GN ---
Behaviors/Verbalizations/Mental Status: [] Eye contact is poor. Motor activity is appropriate. Appearance is casual. Speech is Appropriate. Mood is anxious. Affect is congruent. Thoughts are linear and logical. No evidence of psychosis. Reviewed daily check in sheet and no reports of suicidal ideations or intent. Client Response/Progress/Benefit: [] Pt was an active participant in group discussions. Attentive. Daily symptom tracker notes 08/06 for depression, anxiety, and irritability which is improvement from baseline. Reports functioning and mood are improved. Engaged in self-care and finding purpose and meaning in her spirituality and art. Insight on how consistent engagement in activities with are meaningful and provide purpose can benefit mental health. Continues to reports difficulty with emotional regulation and negative thinking due to medical issues, financial strain and stress at home. Emotion for today is confused. Progress noted. Benefited from group support, encouragement, and feedback. Will continue in IOP to prevent decompensation, stabilize mood, and increase healthy coping. Narrative Note: []
--- NOTE | 2023-11-09 10:10 | BH.SGPN.GN ---
Behaviors/Verbalizations/Mental Status: []Eye contact is good. Motor activity is appropriate. Appearance is casual. Speech is Appropriate. Mood is depressed. Affect is congruent. Thoughts are linear and logical. No evidence of psychosis. Client Response/Progress/Benefit: []Pt was an engaged participant AEB listening attentively to others, taking notes, and providing feedback in small group discussions. Attentive during psychoeducation AEB by note taking and providing some input. Pt worked along with peers in small groups to define inappropriate guilt and appropriate guilt. Interactive discussion on examples of both inappropriate and appropriate guilt. Pt able to connect impact inappropriate guilt can have on MH. Pt gave an example of taking on other?s emotions as inappropriate guilt. Appeared to benefit from increased awareness of guilt and the differences between appropriate and inappropriate guilt. Will continue IOP tx to increase mood stability, reduce isolation, and gain independence Narrative Note: []
--- NOTE | 2023-11-09 11:15 | BH.SGPN.GN ---
Behaviors/Verbalizations/Mental Status: []Pt alert and oriented, casually dressed and groomed. Eye contact good. Motor activity appropriate. Speech within normal limits. Affect congruent, mood anxious and depressed. Thoughts linear, logical, no signs of hallucinations or delusions. Client Response/Progress/Benefit: [] Pt engaged participant AEB listening attentively to others and providing input throughout group. Pt worked within their small group to identify strategies to manage inappropriate guilt. Identified a personal example of inappropriate guilt as blaming herself for not making progress as fast as she wants. Insight this cues a fear of disappointing others and fear of not being good enough. Pt wants to work on combatting inappropriate guilt by challenging distortions, maintaining her boundaries, and focusing on self-compassion. Pt seemed to benefit from learning about strategies to manage appropriate and inappropriate guilt. Pt will continue IOP tx to promote mood stability, improve self-care, and prevent decompensation. Narrative Note: []
--- NOTE | 2023-11-10 09:00 | BH.SGPN.GN ---
Behaviors/Verbalizations/Mental Status: [Patient was alert and oriented, appropriately dressed and groomed. Eye contact was good, motor activity normal, speech within normal limits. Affect congruent, mood sad. Thoughts linear, logical, no signs of hallucinations or delusions. Reviewed Patients symptom tracker and the patient reports moderate in depressed mood, anxiety/panic attacks, agitation/irritability/anger, low to moderate in thoughts of suicide, and low in risk of suicide. Patient does not report symptoms of self-harm urges. Patient will be checked in on to assess for safety.] Client Response/Progress/Benefit: [Patient was engaged and open to the discussion. Patient reported her mood to be ?depressed and stressed?.?Patients first win was that although she did not get a lot of sleep last night, she didn?t hesitate to come to group today like she had last week. Patients second win was that she spent time with her spider which improved her mood. Patients stressor is that she may be missing her Sparato shot for the 3rd time today which is causing her to feel distressed. Patient was interactive and respectful with other group members about their mental wins and stressors. Patient benefited from the discussion by listening to feedback and giving input on her peer?s stressors and mental health wins. Patient will continue with IOP treatment to help develop healthy skills, promote mood stability, and improve distress tolerance. ? ?] Narrative Note: []
--- NOTE | 2023-11-10 10:05 | BH.SGPN.GN ---
Behaviors/Verbalizations/Mental Status: [] Eye contact is good. Motor activity is appropriate. Appearance is casual. Speech is Appropriate. Mood is depressed/irritable. Affect is congruent. Thoughts are linear and logical. No evidence of psychosis. Client Response/Progress/Benefit: [] Pt did not engage with group discussions however was attentive AEB taking notes throughout session. Connected with the topic of pitfalls and listened to group discussion on internal and external barriers that prevent from choosing a healthier path to mental wellness. Group worked together to identify examples of personal internal pitfalls and pt identified theirs as rushing, isolation, negative self-talk, and shutting down. Pt benefited from group as pt learned to better identify and normalize potential barriers to improving mental health symptoms. Pt also gained awareness of the difference between external triggers and self-sabotaging behaviors. Will continue in IOP to maintain safety, improve functioning, and prevent decompensation. Narrative Note: []
--- NOTE | 2023-11-16 09:05 | BH.SGPN.GN ---
Behaviors/Verbalizations/Mental Status: [] Eye contact is good. Motor activity is appropriate. Appearance is casual. Speech is Appropriate. Mood is depressed/irritable. Affect is congruent. Thoughts are linear and logical. No evidence of psychosis. Reviewed daily check in sheet and no reports of suicidal ideations or intent. Client Response/Progress/Benefit: [] Pt participated at times during the group discussion. Attentive. Emotion for today is depressed. Struggles to identify mental healthy wins and healthy habits. Regression due to increased physical pain which has resulted in decreased functioning. Lack of progress on goals and utilizing skills. Limited progress noted per pt report. Benefited from group support, encouragement, and feedback. Will continue in IOP to prevent decompensation, increase healthy coping, and to improve functioning. Narrative Note: []
--- NOTE | 2023-11-16 10:15 | BH.SGPN.GN ---
Behaviors/Verbalizations/Mental Status: [] Eye contact is good. Motor activity is appropriate. Appearance is casual. Speech is Appropriate. Mood is euthymic. Affect is full. Thoughts are linear and logical. No evidence of psychosis. Client Response/Progress/Benefit: [] Pt was an active participant, AEB taking notes and providing input in group discussions and activities. Attentive during psychoeducation. Pt engaged during interactive discussion in which the group defined self-care and discussed its benefits. Group discussed benefits of self-care which included; better self-esteem, increased energy, feeling refreshed, increased motivation, reduce stress, and boost mood. Pt participated in small group where they worked to identify common self-care ?myths? or obstacles. Pt identified her physical health as an obstacle to self-care. Benefited from increased awareness of self-care, its benefits, and the consequences of not utilizing self-care strategies. Will continue IOP to maintain safety, increase healthy coping skills, and prevent decompensation. Narrative Note: []
--- NOTE | 2023-11-16 11:20 | BH.SGPN.GN ---
Behaviors/Verbalizations/Mental Status: []Pt alert and oriented, neatly dressed and groomed. Eye contact good. Motor activity appropriate. Speech within normal limits. Affect congruent, mood anxious. Thoughts linear, logical, no signs of hallucinations or delusions. Client Response/Progress/Benefit: [] Pt engaged participant AEB completing self-assessment worksheet and providing input throughout discussion. Pt completed worksheet identifying current self-care practices and what self-care activities Pt wants to start using. Pt selected emotional self-care to begin practicing more consistently. Pt plans to do this by practicing positive self-talk consistently. Appeared to benefit from completing the self-care evaluation and gaining insights into current self-care practices, as well as identifying areas in which Pt would like to improve upon. Pt will continue IOP tx to promote mood stability, increase motivation, and improve daily functioning. Narrative Note: []
--- NOTE | 2023-11-17 09:00 | BH.SGPN.GN ---
Behaviors/Verbalizations/Mental Status: [ Patient was alert and oriented, appropriately dressed and groomed. Eye contact was good, motor activity normal, speech within normal limits. Affect incongruent, mood content. Thoughts linear, logical, no signs of hallucinations or delusions. Reviewed Patients symptom tracker and the patient reports low in depressed mood, anxiety/panic attacks, and agitation/irritability/anger. Patient does not report symptoms of self-harm urges/behaviors, or thoughts/risk of suicide.] Client Response/Progress/Benefit: [Patient was engaged and open to the discussion. Patient reported her mood to be ?depression but trying to suppress it?. Patients first win is that although she woke up depressed, she was able to get up and get ready and do her makeup today. Patients second win was that she was able to meditate last night and bring herself some peace. Patients stressor is that she is experiencing some chest pain from coughing too much. Patient was interactive and respectful with other group members about their mental wins and stressors. Patient benefited from the discussion by listening to feedback and giving input on her peer?s stressors and mental health wins. Patient will continue with IOP treatment to help develop healthy skills, promote mood stability, and improve distress tolerance. ] Narrative Note: []
--- NOTE | 2023-11-17 10:10 | BH.SGPN.GN ---
Behaviors/Verbalizations/Mental Status: [] Eye contact is good. Motor activity is appropriate. Appearance is casual. Speech is Appropriate. Mood is dysthymic. Affect is congruent. Thoughts are linear and logical. No evidence of psychosis. Client Response/Progress/Benefit: [] Pt was an active participant in group discussions. Attentive during psychoeducation on the 4 communication styles (Passive, Passive-Aggressive, Aggressive, and Assertive) and the obstacles to effective communication. Contributed during interactive discussion on the benefits of communicating effectively which included; having one's needs met, helping, building connection with others, decreases stress and uncertainty, improved relationships, and increased trust. Worked well in small group in which pt and peers identified the benefits and disadvantages to the different communication styles. Pt identified connecting with passive aggressive and passive communication styles depending on who she is communicating with. Benefited from increased understanding of communication styles and how these can impact effective communication. Will continue in IOP to prevent decompensation, improve mood stability, and improve functioning. Narrative Note: []
--- NOTE | 2023-11-17 12:01 | PCM.BH.PN_ITS ---
Progress Note Progress Note: History of Present Illness/Interim History: The patient is a 33-year-old biological male who identifies as a transgender female who is single but has a 42-year-old male fianc? of 4 years and is seen in follow-up at the [facility] behavioral health IOP. The patient has a history of anxiety, depression and ADHD and currently lives with her parents and brother. Patient continues to have ongoing stressors involving housing, financial and ongoing discomfort from plantar fasciitis that makes her unable to hold a job. The patient has been receiving Spravato treatment but has had difficulties with transportation and has missed the past 2 weeks sessions. The patient states that these issues have been resolved and she is resuming Spravato treatment in a few days. She feels she has benefited from the IOP and feels more able to manage herself. She feels that she is able to be a little nicer to herself. According to the staff the patient is engaged in the program and consistent in attendance but has made somewhat limited progress. Mood remains depressed with occasional hopelessness and occasional passive thoughts of . She denies any suicidal ideation and denies any self-harm thoughts or actions. She remains sober from alcohol. She also denies homicidal ideation, hallucinations, delusions. Current Psychiatric Medications: [] Cymbalta 30 mg p.o. twice daily. Methylphenidate of unknown dose daily. Spravato (missed 2 weeks of this but is resuming in a few days). Mental Status Examination: [] The patient is a 33-year-old transgender female who is dressed like a female with make-up and long hair. The patient has a tongue piercing. She is ambulatory with a normal gait and has no psychomotor agitation or retardation. She is cooperative and pleasant during interview. Eye contact is good and speech is normal rate and rhythm and fluent with no pressure. Mood is depressed. Thought process is goal-directed and organized. Thought content: The patient is hopeful that when she review resumes her Spravato she will continue to improve. There is evidence of chronic passive thoughts of . There is no evidence of suicidal ideation, homicidal ideation, hallucinations or delusions. Reality testing is intact. Intelligence is average. Judgment is intact. Insight is limited but some present. Impulsivity is moderate to high. Diagnoses: [] 1. Major depressive disorder, recurrent, severe without psychosis 2. Generalized anxiety disorder 3. Borderline personality disorder 4. ADHD 5. Primary support, work and housing issues Plan: [] The patient will continue the IOP at [facility] as the structure, support, education and group therapy will hopefully prevent worsening of the patient's symptoms which could require hospitalization. She felt safe during the interview and if it anytime she does not feel safe she will let us know or go to the emergency room. No medication changes were made today and she will continue and resume her Spravato treatment. She will continue to stay sober from alcohol and decrease her marijuana use. She will continue to follow- up with her outpatient providers and I will see the patient in follow-up on a regular basis while she is in the IOP. Patient may discharge in the next few weeks if her condition remains stable.
--- NOTE | 2023-11-17 12:43 | BH.MDN_ITS ---
Multi-Disciplinary Note Note 45-min Individual: Time Started:: 11:05 Date: 11/17/23 Purpose of session/treatment goals addressed:: talking about discharge, future goals/plans, and maintance Eye Contact:: Good Motor Activity:: Appropriate Appearance:: Casual Speech:: Appropriate Mood:: Euthymic Affect:: Congruent Thoughts:: Linear and No evidence of hallucinations/delusions noted Staff Interventions:: mindfulness skills, rapport building, discharge planning and goal setting Client Response:: Therapist and Patient discussed how the Patients headspace has been since last they spoke. Patient reported her mood to be feeling better and more positive because of some recent developments in her life. Therapist and Patient discussed the patients goal regarding the [employer] program and the patient reported to have followed through with contacting them. She stated this has given her some more hope about obtaining finances which has helped her to think with a more clear head. Patient has reported that she still has not had her spravato treatment but said she should be getting the next one this coming Wednesday (11/19/2023). Therapist and Patient discussed the Patients thoughts on discharge next week (11/22/2023) and future goals that go along with that. Therapist and Patient started a list of things that she wants to accomplish or continue such as starting at [employer], obtaining a new car, and practicing self-care as a daily routine. Risks/Concerns:: No suicide ideation or risk as of this date. 11/17/2023 Progress Toward Goals/Plan:: Progress has been made as evident by Patient following through with getting into contact with the [employer] in her area and signing up for their program. 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 She reported that they also agreed that she could transfer and work at different [employer] stores if she chose to. Patient also shared that she has paid off her car so that she can scrap it and use the money as a down payment for a new vehicle. Patient seemed motivated by this since she would no longer be reliant on others driving her around, giving her more freedom and options regarding her environment and workplace. Patient has reported being more mindful and practices daily affirmations and has started doing meditation every night. Patient reported this success has been able to help her be conscious of her cognitive distortions when things go wrong or when she is triggered. Patient has shown interest on information regarding the [employer] [facility] as well as the DBT groups through [employer]. Patient still endorses in some anxiety, and depressive symptoms. Therapist recommends that the patient would benefit to continue IOP treatment at this time. Time Stopped:: 11:50
--- NOTE | 2023-11-18 09:03 | BH.SGPN.GN ---
Behaviors/Verbalizations/Mental Status: [] Eye contact is fair. Motor activity is appropriate. Appearance is casual. Speech is Appropriate. Mood is euthymic. Affect is congruent. Thoughts are linear and logical. No evidence of psychosis. Reviewed daily check in sheet and no reports of suicidal ideations or intent. Client Response/Progress/Benefit: [] Pt participated at times during the group discussion. Attentive. Daily symptom tracked notes 08/06 for anxiety and 08/06 for depression. Emotion for today is happy. Able to identify mental health wins and healthy habits. Pt reported current stressor is being in pain due to having bruised ribs. Pt stated mental health positive as working on making homemade Kombucha. Additional positive as working on crafting and writing recipes. Benefited from group support, encouragement, and feedback. Will continue in IOP to increase consistent use of healthy coping skills, challenge distortions, and prevent decompensation.
--- NOTE | 2023-11-18 10:10 | BH.SGPN.GN ---
Behaviors/Verbalizations/Mental Status: []Pt alert and oriented, neatly dressed and groomed. Eye contact good. Motor activity appropriate. Speech within normal limits. Affect congruent, mood anxious. Thoughts linear, logical, no signs of hallucinations or delusions. Client Response/Progress/Benefit: [] Pt was an active participant in group discussion. Attentive during psychoeducation on the [facility] [employer] (Thoughts, Behaviors, Emotions). Engaged in group discussion on how thoughts and behaviors can contribute to maintaining adverse feelings, such as depression, anxiety, and irritability. Completed personal maintenance cycle for depression and shared that she struggles with thoughts that things will never get better. Shared this maintains depression and anxiety cycles. Pt benefited from increased awareness of the basis of CBT therapy as well as specific thoughts that are impacting pt's progress. Will continue in IOP tx to promote mood stability, reduce negative thinking, and improve daily functioning. Narrative Note: []
--- NOTE | 2023-11-18 11:10 | BH.SGPN.GN ---
Behaviors/Verbalizations/Mental Status: []Pt alert and oriented, casually dressed and groomed. Eye contact good. Motor activity appropriate. Speech within normal limits. Affect congruent, mood depressed and anxious. Thoughts linear, logical, no signs of hallucinations or delusions. Client Response/Progress/Benefit: []Pt responded well to session, contributing and attentive throughout discussion. Pt identified a negative thought that has kept them stuck. Pt's thought was I'll never feel better.? Pt reported when they think this way, they get depressed and anxious resulting in giving up before allowing things to really help. Pt worked to reframe the thought by finding more rational, realistic ways to look at the thoughts and then processed them within group setting. Pt reframed the thought to ?Every step helps moving towards finding what is wrong and what can help?. Pt appeared to benefit from practicing challenging negative thinking. Pt will continue IOP tx to prevent decompensation, increase mood stability, and continue to promote application of behavior activation skills. ? Narrative Note: []
--- NOTE | 2023-11-19 11:06 | BH.COMM ---
Documented by User: Erinn Ernst 11/19/23 11:08 Communication Note Communication with Client Communication Note: Len was checked in on after 1st group on 11/10/2023 to ensure safety due to her answers on her daily risk assessment. She reported that she was not actually suicidal but that she had thoughts of more than normal. Documented by User: Alma Whatley 11/22/23 14:00 Communication Note Communication with Client Communication Note: Pt was checked in on after 1st group on 11/10/2023 to ensure safety due to her answers on her daily risk assessment. She reported that she was not actually suicidal but that she had thoughts of more than normal.
--- NOTE | 2023-11-22 11:10 | BH.SGPN.GN ---
Behaviors/Verbalizations/Mental Status: [] Client alert and oriented, casually dressed and groomed. Eye contact good. Motor activity appropriate. Speech within normal limits. Affect congruent, mood content. Thoughts linear, logical, no signs of hallucinations or delusions. Client Response/Progress/Benefit: [] Client responded well to session, attentive. Did well to process activity and work with group to relate the strategies used to overcome barriers in the activity to managing change in own life. Client identified a change they would like to make as improving her perspective. Client identified currently being in contemplation stage for this particular change. Client stated their goal is to practice using daily positive self-talk. Appeared to benefit from identifying a small goal to work towards. Client will d/c from IOP tx and continue outpatient tx to prevent decompensation, and promote continued skill application. Narrative Note: []
--- NOTE | 2023-11-22 12:44 | BH.DS_ITS ---
Documented by User: Erinn Ernst 11/22/23 13:45 Discharge Summary Demographics Date of Admission:: 10/11/23 Discharge Date: 11/22/23 Presenting Problems at Admission:: The patient is a 33-year-old biological male who identifies as a transgender female who is single but has a 42-year-old male fianc? of 4 years who is supportive of the patient although they do not live together. She was referred to the [facility] behavioral health I OP by her therapist due to worsening symptoms of anxiety and depression that make it hard for her to function. She has had issues with this for the past 6 or 7 years but it has worsened in the past year since she was fired from her job due to ongoing mental and physical health conditions. Patient has a history also of plantar fasciitis and had surgery on the right foot for this in December 2022 but has had no improvement in the pain and this also has made it hard to work and is made it hard to walk for enjoyment which was a form of coping for the patient before. Patient feels like a burden to her family and friends because she is unable to provide financially and healthcare costs are also adding up. The patient endorses sadness, hopelessness, lots of self-hatred, decreased motivation, guilt and passive thoughts of . The patient denies passive or active suicidal ideation but does admit that she has a plan that if she ever did try to commit suicide she would do a by overdose or carbon monoxide poisoning. She endorses low energy and poor concentration. Her primary support she has her fianc? or a female friend. Discharge Diagnoses:: 1. Major depressive disorder, recurrent, severe without psychosis 2. Generalized anxiety disorder 3. ADHD 4. Borderline personality disorder Diagnosis Code(s):: F33.2, F41.1,F90.9, F60.3 Reason for Discharge:: Patient has completed her IOP treatment goals as evidence by the patients overall score decreasing by 21%. Patient had a 100% decrease in suicidal ideation, and 67% decrease in anger, and a 33% decrease in repetitive thoughts and behaviors. Patient always showed attentiveness and was receptive to learning during group and individual sessions. The patient has reported that she feels like she is able to cope easier with the stressors in her day to day life. Patient has obtained better coping skills for her depression and anxiety such as mindfulness, opposite action, and using thought challenges. Patient plans to start working at [employer] and has been given resources for DBT group through [facility] and information on the [facility]. Patient will continue with outpatient ángela constantino and her psychiatrist, Aris Campbell, through the [facility] for medication management. Treatment Progress During Treatment & Response: Len has responded well to treatment as evidence by Len consistently attending IOP sessions and her ability to cope with life stressors improving despite an increase in her DSM-5 scores at her review. Len always showed attentiveness and was receptive to learning during group and individual sessions. Issues Still to be Addressed:: combating negative self-talk, mindfulness, and u sing her coping skills. Discharge Recommendations/Instructions:: Patient is already in an outpatient counseling center through [facility] with Zahida Galvez. She is encouraged to continue this treatment and continue seeing her psychiatrist Aris Campbell through the [facility] for medication management. Patient has been given resource information on the DBT group through [facility] and is encouraged to attend if the Patient desires. Discharge Handout Documented by User: Alma Whatley 11/22/23 13:59 Discharge Summary Treatment Progress During Treatment & Response: Pt has responded well to treatment as evidence by Pt consistently attending IOP sessions and her ability to cope with life stressors improving despite an increase in her DSM-5 scores at her review. Pt always showed attentiveness and was receptive to learning during group and individual sessions. Discharge Handout
--- NOTE | 2023-11-22 12:45 | BH.AFTERPLAN ---
Documented by User: Erinn Ernst 11/22/23 13:57 Aftercare Plan Demographics Treatment End Date:: 11/22/23 Psychiatrist Office #:: [phone] Medications Home Medications esketamine intranasal .q week 10/13/23 estradiol 2 mg tablet 2 mg PO BID 10/13/23 medroxyprogesterone .ROUTE DAILY 10/13/23 methylphenidate PO BID 10/13/23 spironolactone 50 mg tablet (Aldactone) 50 mg PO BID 10/13/23 duloxetine 30 mg capsule,delayed release (Cymbalta) 30 mg PO BID 30 days #60 caps 11/17/23 Plan Details Progress/Aftercare Plan Details:: Patient has completed her IOP treatment goals as evidence by the patients overall score decreasing by 21%. Patient had a 100% decrease in suicidal ideation, and 67% decrease in anger, and a 33% decrease in repetitive thoughts and behaviors. Patient always showed attentiveness and was receptive to learning during group and individual sessions. The patient has reported that she feels like she is able to cope easier with the stressors in her day to day life. Patient has obtained better coping skills for her depression and anxiety such as mindfulness, opposite action, and using thought challenges. Patient plans to start working at [employer] and has been given resources for DBT group through [facility] and information on the [employer]. Patient will continue with outpatient counseling and her psychiatrist, Aris Campbell, through the [facility] for medication management. Strategies for Success:: 1. Opposite Action! Continuing to remind yourself that even just doing one small thing will help motivate you and improve your mood. You may allow yourself time to rest but don't stay stuck there! 2. Self-Care! Remember that you are worth giving yourself self-love and self-compassion. And if we don't allow ourselves these things, then we will burn out hard and fast. 3. Mindfulness! You are only one person, and you can do so much. Give yourself andrés and reflect on the bigger picture of situations that become overwhelming. Weighing your options when faced with a decisions by listing pros and cons can be helpful. 4. Remember that progress isn't linear and that it is okay to feel bad or off! Reminding yourself that its just a bad situation not a bad day, week, or life will do wonders! Your mindset of situations will be a big automation driver on how you feel and your perspective of the world and your life. 5. Doing our best is going to look different every day! Appointments Appointments/Referrals to Other Services:: Patient is already in an outpatient counseling center through [facility] with Andrés Galvez. She is encouraged to continue this treatment and continue seeing her psychiatrist Aris Campbell through the [facility] for medication management. Patient has been given resource information on the DBT group through [facility] and is encouraged to attend if the Patient desires. Documented by User: Alma Whatley 11/22/23 14:00 Aftercare Plan Demographics Psychiatrist:: Edith Arias [facility]/I[facility] Therapist:: Alma Whatley Therapist Phone #:: [phone] Medications Home Medications esketamine intranasal .q week 10/13/23 estradiol 2 mg tablet 2 mg PO BID 10/13/23 medroxyprogesterone .ROUTE DAILY 10/13/23 methylphenidate PO BID 10/13/23 spironolactone 50 mg tablet (Aldactone) 50 mg PO BID 10/13/23 duloxetine 30 mg capsule,delayed release (Cymbalta) 30 mg PO BID 30 days #60 caps 11/17/23
--- NOTE | 2023-11-22 13:58 | BH.COMM ---
Documented by User: Erinn Ernst 11/22/23 14:00 Communication Note Communication with Client Communication Note: I met with Len briefly because she wanted more information on DBT. Len was interested in [facility] DBT groups and the [facility] and was given information for both of these. Finally, I showed her the decrease in her DSM-5 self rated scores. Len was pleased with the decrease. Documented by User: Alma Whatley 11/22/23 14:02 Communication Note Communication with Client Communication Note: I met with Pt briefly because she wanted more information on DBT. Pt was interested in [facility] D[facility] groups and the [facility] and was given information for both of these. Finally, I showed her the decrease in her DSM-5 self rated scores. Pt was pleased with the decrease.
--- NOTE | 2023-11-23 09:05 | BH.SGPN.GN ---
Behaviors/Verbalizations/Mental Status: [] Eye contact is good. Motor activity is appropriate. Appearance is casual. Speech is Appropriate. Mood is anxious. Affect is full. Thoughts are linear and logical. No evidence of psychosis. Reviewed daily check in sheet and no reports of suicidal ideations or intent. Client Response/Progress/Benefit: [] Pt was an active participant in group discussion. Attentive. Daily symptom tracker notes 2/5 for depression and anxiety. Share with the group that today is her last day in [facility] and she is set to discharge successfully today. Reports feeling nervous and upset about this change however overall feels she has made progress. Notes improved engagement in daily activities and hobbies which has decreased isolation and improved mental health. She identified groups and psychoeducation regarding behavioral activation and opposite-action as being most beneficial to her. Progress noted. Benefited from group support, encouragement, and feedback. Will be discharged from [facility] today. Narrative Note: []
== END 2023-11-22 12:24 | disposition home or self-care (01) ==
LOC: BHIOP 07:14
PROVIDERS: Referring Provider Psychiatry & Neurology Psychiatry; Visit Provider Psychiatry & Neurology Psychiatry
DX: F33.2 Major depressive disorder, recurrent severe without psychotic features (principal); F41.1 Generalized anxiety disorder; F60.3 Borderline personality disorder; F90.9 Attention-deficit hyperactivity disorder, unspecified type
CPT/HCPCS: 99213; H2012; H2020; S9480; 90834

== ENCOUNTER 2025-06-04 08:00 | Outpatient (RCR) | payer MEDICAID, SELFPAY ==
--- NOTE | 2025-06-04 10:10 | BH.SGPN.GN ---
Behaviors/Verbalizations/Mental Status: []Eye contact good, Motor activity is appropriate, Appearance is neat. Speech appropriate. Mood depressed. Affect constricted. Thoughts are linear and logical. No evidence of psychosis. Client Response/Progress/Benefit: [] Pt was an active participant during interactive group discussions. Attentive during discussion of the different types of boundaries (rigid, porous, healthy) Took notes and provided input. Contributed to the discussion on defining boundaries and the benefits and barriers to them. Active participant in the boundary continuum activity. Identified boundary type as more porous and pt struggles to walk away from things that are not healthy. Group discussed mental health benefits to establishing boundaries, and situations in which lessening boundaries are appropriate. Pt benefited from increased awareness and insight on the importance of boundary setting. Pt will continue in IOP to prevent decompensation, improve daily functioning, and increase use of healthy coping skills. ??? Narrative Note: []
--- NOTE | 2025-06-04 11:10 | BH.SGPN.GN ---
Behaviors/Verbalizations/Mental Status: []Pt alert and oriented, casually dressed and groomed. Eye contact fair. Motor activity appropriate. Speech within normal limits. Affect congruent, mood dysthymic. Thoughts linear, logical, no signs of hallucinations or delusions. Client Response/Progress/Benefit: [] Client responded well to session AEB listening attentively to peers, providing input, as well as taking notes throughout. Group discussed different styles of boundary setting. Participated in small group discussion brainstorming various strategies for improving healthy boundary setting. Pt took time to complete reflection on which skills would like to implement to improve boundaries. Seemed to benefit from increased awareness of how different boundary styles can impact mental health. Pt stated she learned she allows others to walk all over her intellectual boundaries and she struggles with standing up for herself. Will continue IOP tx prevent decompensation, increase consistent use of skills, and improve daily functioning.
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
--- NOTE | 2025-06-06 09:00 | BH.SGPN.GN ---
Behaviors/Verbalizations/Mental Status: [] Pt alert and oriented, Casually dressed and groomed. Eye contact good. Motor activity appropriate. Speech within normal limits. Affect congruent, mood anxious. Thoughts linear, logical, no signs of hallucinations or delusions. Reviewed pt?s symptom tracker today, reported 2/5 for suicidal ideation and 1/5 for plan, and intent. Client is future oriented. Does not appear to be imminent risk to self. 06/06/25. Client Response/Progress/Benefit: []Pt was an active participant in group discussions. Attentive. Per patients daily symptom tracker, pt indicates a 3/5 for depression and a 4/5 for anxiety, with 5 being severe. Pt's first mental health positive was speaking up during group, stating that she was trying to come up with excuses before group to not participate. Pt's other mental health positive was rescuing two beetles that she found at a pet store who she feels were being mistreated. Pt's stressor is trying to communicate with her partner who she reports is very defensive. Pt was supportive and attentive to others in the group. Pt seemed to benefit from support from peers. Will continue IOP tx to promote healthy coping mechanisms, reduce negative thinking patterns, and prevent decompensation.
--- NOTE | 2025-06-06 10:10 | BH.SGPN.GN ---
Behaviors/Verbalizations/Mental Status: [] Pt alert and oriented, casually dressed and groomed. Eye contact good. Motor activity appropriate. Speech within normal limits. Affect congruent, mood euthymic. Thoughts linear, logical, no signs of hallucinations or delusions. Client Response/Progress/Benefit: [] Pt was an active participant in group discussions and activity. Attentive during psychoeducation. Pt along with peers were able to identify several negatives on the picture given to the group. Pt and peers also identified positives in the picture and made the connect that finding positives is much more difficult. Interactive discussion on the definition of perspective, how perspective is formed, and why perspective is important in treatment. Pt along with peers also identified that perspective can either motivate and encourage treatment or be a barrier to receiving help. Will continue in IOP to promote gains, further decrease anxiety, and increase self-confidence. Narrative Note: []
--- NOTE | 2025-06-06 14:16 | BH.MTP_ITS ---
Documented by User: Mee Max 06/20/25 08:57 Master Treatment Plan Patient Information Program Physician:: Dr. Duenas Primary Therapist:: Mee Max Psychiatric Diagnoses Psychiatric Diagnoses:: Major Depressive Disorder, Generalized Anxiety Disorder, ADHD, Borderline Personality Disorder Problem/Goal #1 Problem/Goal #1 Stated Goal:: Client will reduce depressive symptoms, feelings of worthlessness, and anhedonia due to Major Depressive Disorder through Intensive Outpatient Program Description of Barriers: Client has good insight into her triggers and symptoms, identifying lack of community and support as one of the main stressors in her life. Client identified using negative self-talk, and feelings of worthlessness that contribute to her depressive symptoms and lack of connection with others. Client stated that feelings like a burden to friends and family, and not being able to work increase anxiety and depression. Functional Impact: Client is a 35 year old transgender female. Client is engaged to her 42 year old fianc? of 6 years. The client was initially referred to [facility] by her therapist in 2023, but has re-admitted herself this year due to ongoing struggles with depression and anxiety that are affecting her daily functioning. Client reports that her anxiety and depressive symptoms have resurfaced in the past year feeling that she hasn't made much progress after discharging from the program. The client reports struggling with chronic pain due to plantar fasciitis which makes her unable to find a job as she cannot stand for long periods of time. The client had surgery on her right foot in 2022, but reports that the pain has not lessened. The client also has been diagnosed with ADHD which she reports makes it extremely difficult for her to concentrate on tasks such as work. The client is currently unemployed due to her mental and physical health issues. The client stated that she feels like a burden to her family who she lives with and currently supports her financially. Client endorsees feelings of worthlessness, sadness, self-hatred, low motivation, poor c oncentration, and passive thoughts of . The patient endorses some suicidal ideation, and states that she does have a plan if she intended commit suicide, however she does not endorse any intent on following through with this plan, stating that she does not have the desire to kill herself. Goal Relevant Strengths/Supports: Client is motivated and willing to work on her mental health. Client is kind and genuine, showing good insight into where and how she wants to improve. Client reports feeling hopeful about attending [facility] and shows good retention of information and coping skills from her previous time in [facility]. Client shows good self motivation for improvement, stating that she made the decision to stop drinking, and successfully stopped on her own. She identifies her fianc? and an online friend as supports and accountability. Objectives Objective #1: Stated Objective: Client will identify at least 2-3 negative self-talk messages used to reinforce feelings of worthlessness and replace thoughts with more realistic, affirmative messages. Interventions: Therapist will help client identify distorted, negative beliefs about self and replace with more realistic, affirmative messages. Discharge Criteria: Client will have achieved this goal when she can verbalize at least 2 negative self-talk messages and effectively replace those thoughts with affirmative messages. Target Date: 07/12/25 Review Date: 07/12/25 Status: Open Objective #2: Stated Objective: Client will increase extracurricular activity to at least one additional activity per week. Interventions: Therapist will help client explore activities they enjoy engaging in and help connect to those activities. Therapist will help client identify barriers that have prevented engagement in more activity. Discharge Criteria: Client will have achieved this goal when she participates in one extracurricular activity. Target Date: 07/12/25 Review Date: 07/12/25 Status: Open Problem/Goal #2 Problem/Goal #2 Stated Goal:: Stabilize anxiety level while increasing ability to function on daily basis. Description of Barriers: Client has good insight into her triggers and symptoms, identifying lack of community and support as one of the main stressors in her life. Client identified using negative self-talk, and feelings of worthlessness that contribute to her depressive symptoms and lack of connection with others. Client stated that feelings like a burden to friends and family, and not being able to work increase anxiety and depression. Functional Impact: Client is a 35 year old transgender female. Client is engaged to her 42 year old fianc? of 6 years. The client was initially referred to [facility] by her therapist in 2023, but has re-admitted herself this year due to ongoing struggles with depression and anxiety that are affecting her daily functioning. Client reports that her anxiety and depressive symptoms have resurfaced in the past year feeling that she hasn't made much progress after discharging from the program. The client reports struggling with chronic pain due to plantar fasciitis which makes her unable to find a job as she cannot stand for long periods of time. The client had surgery on her right foot in 2022, but reports that the pain has not lessened. The client also has been diagnosed with ADHD which she reports makes it extremely difficult for her to concentrate on tasks such as work. The client is currently unemployed due to her mental and physical health issues. The client stated that she feels like a burden to her family who she lives with and currently supports her financially. Client endorsees feelings of worthlessness, sadness, self-hatred, low motivation, poor concentration, and passive thoughts of . The patient endorses some suicidal ideation, and states that she does have a plan if she intended commit suicide, however she does not endorse any intent on following through with this plan, st ating that she does not have the desire to kill herself. Goal Relevant Strengths/Supports: Client is motivated and willing to work on her mental health. Client is kind and genuine, showing good insight into where and how she wants to improve. Client reports feeling hopeful about attending IOP and shows good retention of information and coping skills from her previous time in IOP. Client shows good self motivation for improvement, stating that she made the decision to stop drinking, and successfully stopped on her own. She identifies her fianc? and an online friend as supports and accountability. Objectives Objective #1: Stated Objective: Client will learn and implement 2-3 calming skills to reduce overall anxiety and manage anxiety symptoms. Interventions: Therapist will teach calming/relaxation skills and how to apply these skills to everyday life. Discharge Criteria: Client will have achieved this goal when they can verbalize and consistently utilize at least 2 calming strategies that client reports helps decrease anxious symptoms. Target Date: 07/12/25 Review Date: 07/12/25 Status: Open Objective #2: Stated Objective: Client will learn and implement 2 conflict resolution skills to manage interpersonal problems. Interventions: Therapist will teach client appropriate conflict resolution skills using modeling and behavior rehearsal. Discharge Criteria: Client will have achieved this goal when they can verbalize and has practicied one conflict resolution skill. Target Date: 07/12/25 Review Date: 07/12/25 Status: Open Documented by User: Diandra Augustine [facility] 06/29/25 10:46 Master Treatment Plan Psychiatric Diagnoses Diagnosis Code(s):: F33.2 Estimated LOS Estimated LOS (in weeks):: 6 Problem/Goal #1 Objectives Objective #1: Target Date: 07/16/25 Review Date: 07/02/25 Objective #2: Target Date: 07/16/25 Review Date: 07/02/25 Problem/Goal #2 Objectives Objective #1: Target Date: 07/16/25 Review Date: 07/02/25 Objective #2: Target Date: 07/16/25 Review Date: 07/02/25
--- NOTE | 2025-06-06 14:19 | BH.MDN_ITS ---
Multi-Disciplinary Note Note 45-min Individual: Time Started:: 11:10 Date: 06/06/25 Purpose of session/treatment goals addressed:: Purpose of session was to build rapport, gather updated background information, and start discussion of goals. Eye Contact:: Good Motor Activity:: Appropriate Appearance:: Casual Speech:: Appropriate Mood:: Anxious and Depressed Affect:: Congruent Thoughts:: Linear and No evidence of hallucinations/delusions noted Staff Interventions:: thought challenging, CBT techniques, mindfulness skills, rapport building and goal setting Client Response:: The client was alert and attentive during the session. She was able to share updated information about her presenting problems, psychiatric history, and social supports. The client reports coming back to [facility] for worsening depression and anxiety. The client shared that she has felt her symptoms getting worse, as she has not been able to work or go out on her own due to chronic pain and lack of transportation. The client stated that she knows her parents see her as a burden, and that they do not understand her and her interests. The client reported frustration at her parents for lack of communication and support. The client endorsed loneliness, feelings of wo rthlessness, and trouble concentrating. Client stated that her ADHD makes it very difficult for her to focus on non-physical tasks such as sitting at a desk, which contributes to her current lack of employment. The client reported her fianc? as a good support for her, but stated that she feels that she cannot talk with him about everything she is struggling with as he tries to fix her problems instead of listen. The client became tearful when talking about her current living and family situation, stating that she knows her parents see her as a disappointment, and that she is the black sheep of the family. Client is receptive to challenging anxiety, negative self-talk, and decreasing depressive symptoms, stating that she is hopeful about her time in IOP. Client also was receptive to finding ways to increase socialization and community. Risks/Concerns:: Client stated suicidal ideation in the past, and as recent as this week, but denies any plan or intent as of 06/06/25. She reports having family and her fianc? as protective factors. Progress Toward Goals/Plan:: no progress noted yet as it is the client's first day back in [facility]. Client appears motivated and engaged in goal setting and treatment. Client shared a history of depression and anxiety. She currently endorses, anxiety, depressive symptoms, and feelings of worthlessness. Client identified treatment goals as reducing depressive symptoms, increasing self- confidence, and increasing community connection. Client to continue IOP to prevent decompensation, decrease negative thinking patterns, and increase coping mechanisms. Time Stopped:: 12:00
--- NOTE | 2025-06-08 07:44 | BH.PSY.EVA_ITS ---
Intake Vital Signs 10/13/23 12:11 06/08/25 07:45 Height 5 ft 11 in 5 ft 11 in Intake Allergies No Known Allergies Allergy (Verified 10/13/23 11:52) Medications ?Medication ?Instructions ?Recorded ?Confirmed ?Type esketamine intranasal .q week 10/13/23 History estradiol 2 mg tablet 2 mg PO BID 10/13/23 4 History medroxyprogesterone .ROUTE DAILY 10/13/23 Histo ry methylphenidate PO BID 10/13/23 History spironolactone 50 mg tablet 50 mg PO BID 10/13/2309/30 History (Aldactone) duloxetine 30 mg capsule,delayed 30 mg PO BID 30 days #60 caps 11/17/23 10/13/23 Rx release (Cymbalta) [facility] () Medical History (Updated 06/08/25 @ 08:[address] Memo Gilliam, ) Borderline personality disorder ADHD Generalized anxiety disorder Major depressive disorder, recurrent severe without psychotic features HPI () History of Present Illness HPI: Estefany Rodriguez is a 35 year old transgender female who presents today for new patient evaluation. Sleep: Interest: Guilt: Energy: Concentration: Appetite: Psychomotor: Suicide: Memory: Anxiety: Obsessions: Compulsions: Juanita: PTSD: Psychosis: denies history of auditory or visual hallucinations, denies disorganized thoughts, denies disorganized speech Developmental History Developmental History: Siblings - Born/Raised - Education - Living Situation - Legal Issues - Employment - Other Substance Use History Nicotine- Alcohol- Marijuana- Stimulants- Opioids- Other- Assessment & Plan () Assessment & Plan (1) Major depressive disorder, recurrent severe without psychotic features: (2) ADHD: (3) Generalized anxiety disorder: (4) Borderline personality disorder: Plan - The patient will start the IOP in Behavioral [facility] at [facility] as the structure, support, education and group therapy with ideally prevent worsening of patient's symptoms which could result in admission to higher level of care such as [facility] or psychiatric admission. I have reasonable expectation that the patient will make timely and significant improvement in the presenting acute symptoms as a result of the program and eventually be discharged to a lower level of care.
--- NOTE | 2025-06-08 07:45 | BH.DR.ITP ---
Initial Treatment Plan Patient Information Visit Information: ADMISSION DATE: EXPECTED LOS: 4-6 weeks
--- NOTE | 2025-06-11 09:00 | BH.SGPN.GN ---
Behaviors/Verbalizations/Mental Status: [] Pt alert and oriented, Casually dressed and groomed. Eye contact good. Motor activity appropriate. Speech within normal limits. Affect congruent, mood anxious. Thoughts linear, logical, no signs of hallucinations or delusions. Reviewed pt?s symptom tracker today, denies suicidal ideation, plan, and intent.06/11/25 Client Response/Progress/Benefit: []Pt was an active participant in group discussions. Attentive. Per patients daily symptom tracker, pt indicates a 3/5 for depression and a 4/5 for anxiety, with 5 being severe. Pt shared her mental health positive as feeling happy to be at group, stating that she feels that the connection and support is something that she was needing. Her other mental health positive was finishing a personal project that she had been working on. Pt stated that her stressor is something coming up this weekend that she is very anxious for, but did not elaborate on what it was. Pt was supportive and attentive to others in the group. Pt seemed to benefit from support from peers. Will continue IOP tx to promote healthy coping mechanisms, improve confidence, and prevent decompensation.
--- NOTE | 2025-06-11 10:10 | BH.SGPN.GN ---
Behaviors/Verbalizations/Mental Status: []Pt alert and oriented, casually dressed and groomed. Eye contact good. Motor activity appropriate. Speech within normal limits. Affect congruent, mood depressed. Thoughts linear, logical, no signs of hallucinations or delusions. Client Response/Progress/Benefit: []Pt participated during small group discussions. Attentive during psychoeducation about defense mechanisms. Showed engagement during small group discussions and helped group identify which defense mechanisms were maladaptive, adaptive, or ?somewhere in the ling.? Pt worked with small group on identifying how each defense mechanism can impact mental health and gave examples. Pt stated she learned that she struggles with minimization at times.?Pt reported benefit from normalizing why people use maladaptive defense mechanisms. Seemed to benefit from gaining awareness about the different defense mechanisms. Pt to continue IOP tx to prevent decompensation, improve daily functioning, and gain healthy coping skills. Narrative Note: []
--- NOTE | 2025-06-11 11:10 | BH.SGPN.GN ---
Behaviors/Verbalizations/Mental Status: []Pt alert and oriented, disheveled appearance. Eye contact good. Motor activity appropriate. Speech within normal limits. Affect congruent, mood content. Thoughts linear, logical, no signs of hallucinations or delusions. Client Response/Progress/Benefit: [] Pt responded well to session, participating in activity and small group discussion. Group reviewed the rest of the defense mechanisms and discussed how these are adaptive, maladaptive, or somewhere in the ling. Pt's defense mechanisms included rationalization, anticipation, sublimation, and intellectualization. Shared that she noticed that for some people anticipation is healthy, but for pt it is maladaptive. Pt listened to batch plant operator teach different skills to help pt?s cope with or change their defense mechanisms. Pt appeared to benefit from gaining insight to the different defense mechanisms and learning coping skills. Pt will continue IOP tx to prevent decompensation, improve daily functioning, and reduce isolation. Narrative Note: []
--- NOTE | 2025-06-13 09:57 | BH.MDN ---
Multi-Disciplinary Note Note 60-min Individual: Time Started:: 09:05 Date: 06/13/25 Purpose of session/treatment goals addressed:: Purpose of session was to build rapport, talk about building healthy communication, and start discussion of goals. Eye Contact:: Good Motor Activity:: Appropriate Appearance:: Casual Speech:: Appropriate Mood:: Anxious Affect:: Congruent Thoughts:: Linear, Logical and No evidence of hallucinations/delusions noted Staff Interventions:: thought challenging, CBT techniques, mindfulness skills and rapport building Client Response:: The client was alert and attentive during the session. She shared that she has been feeling frustrated with her fianc?, and that they had an argument during the weekend. Client stated that her fianc? talks too much, and does not give her space to join the conversation, making the client feel unheard, uncared for, and frustrated. She stated that she knows her fianc? does not do this on purpose, but she has told him multiple times about her feelings, and she states that he has only gotten a little better, but not much. Client reports that she plans on having a conversation with her fianc? about this, but feels some anxiety at how to start the conversation without coming off as angry. The client responded well to working through the conversation with the clinician, coming up with enriquez talking points, grounding techniques to use if she begins to feel frustrated, and how she plans to respond if her fianc? responds negatively. The client also expressed wanting to spend quality time with her fianc? that is not spent talking about only his interests or hobbies. The client was receptive to the therapist providing psychoeducation on love languages, and stated that she would like to bring this up to her fianc? in their conversation to help facilitate more connection. The client shared that they felt anxious about this conversation, but shared that she felt less anxious and more prepared after the session. Risks/Concerns:: Client stated suicidal ideation in the past, but denies any thoughts, plan, or intent as of 06/13/25. Progress Toward Goals/Plan:: Client was able to clearly express their thoughts and feelings about the conversation with their fianc?, and come up with helpful techniques to utilize. The client was also able to recognize when they might get frustrated during the conversation, and prepare grounding/calming techniques to use. The client expressed wanting to have this conversation to deepen the connection between her and her fianc?, which aligns with her goal to increase connection with others. Client to continue IOP to prevent decompensation, decrease negative thinking patterns, and increase healthy coping mechanisms. Time Stopped:: 09:57
--- NOTE | 2025-06-13 10:10 | BH.SGPN.GN ---
Behaviors/Verbalizations/Mental Status: []Pt alert and oriented, casually dressed and fair groomed. Eye contact good. Motor activity appropriate. Speech within normal limits. Affect congruent, mood dysthymic. Thoughts linear, logical, no signs of hallucinations or delusions. Client Response/Progress/Benefit: [] Pt was an active participant AEB taking notes and engaging in group activity. Connected with the topic of pitfalls and listened to group discussion on barriers that prevent from choosing a healthier path to mental wellness. Group worked together to identify examples of personal pitfalls. These examples included; having unrealistic expectations, not trusting, not asking for help, and shutting down. Pt benefited from group as pt learned to better identify potential barriers to improving mental health symptoms. Pt will continue IOP tx to improve daily functioning, improve healthy coping skills, and prevent decompensation.
--- NOTE | 2025-06-13 10:10 | BH.SGPN.GN ---
Behaviors/Verbalizations/Mental Status: []Pt alert and oriented. Casually dressed and groomed, eye contact good. Motor activity appropriate. Speech within normal limits. Affect congruent. Mood calm. Thoughts linear, logical, no signs of hallucinations or delusions. Client Response/Progress/Benefit: [] Pt was an active participant, taking notes and engaging in group discussion and activity. Connected with the topic of pitfalls and participated in group discussion about barriers that prevent from choosing a healthier path to mental wellness. Pt participated in discussion on pitfalls, what they are, and ways that we stay stuck in them. Group worked together to identify examples of internal and external pitfalls, including depression, isolation, and suicidal thoughts. Pt benefited from group and psychoeducation on pitfalls as pt learned to better identity potential barriers to improving mental health symptoms. Pt was an active participant in activity meant to demonstrate pitfalls and how to cope with them. Pt expressed stress and anxiety during the activity, but was able to work through it. Pt will continue IOP tx decrease negative thinking patterns, improve daily functioning, and prevent decompensation.
--- NOTE | 2025-06-13 11:10 | BH.SGPN.GN ---
Behaviors/Verbalizations/Mental Status: []Client alert and oriented, casually dressed and groomed. Eye contact good. Motor activity appropriate. Speech within normal limits. Affect congruent, mood engaged and motivated. Thoughts linear, logical, no signs of hallucinations or delusions. Client Response/Progress/Benefit: [] Pt receptive of session, engaged throughout AEB Pt actively listening and contributing to discussion as well as taking notes.? Pt participated in the experiential activity and did well to communicate ideas with peers and manage emotions. Pt attentive as group processed how the emotions and perspective of the group impacted the activity. Pt was highly encouraging during the activity which helped peers. Group worked together to identify different coping skills to help manage pitfalls. Pt identified pitfalls they struggle with as isolating, negative thinking, and lack of self-care. Pt plans to work on their pitfall by making a ?to-done? list. ?Benefited from identifying personal pitfalls and strategies to overcome these pitfalls. Pt will continue IOP tx to prevent decompensation, improve daily functioning, and gain healthy coping skills. ? Narrative Note: []
--- NOTE | 2025-06-15 09:00 | BH.SGPN.GN ---
Behaviors/Verbalizations/Mental Status: [] Pt alert and oriented, Casually dressed and groomed. Eye contact good. Motor activity appropriate. Speech within normal limits. Affect congruent, mood calm. Thoughts linear, logical, no signs of hallucinations or delusions. Reviewed pt?s symptom tracker today, denies suicidal ideation, plan, and intent.06/15/25 Client Response/Progress/Benefit: []Pt was an active participant in group discussions. Attentive. Per patients daily symptom tracker, pt indicates a 2/5 for depression and a 3/5 for anxiety, with 5 being severe. Pt's mental health positive was spending time with friends online. Pt stated that is was nice to have the socialization and connection, as she has not been able to see her friends in a while. Pt's other mental health win was ordering some supplies to support her hobby of doing special effect make-up. Pt's stressor is family stress during the holidays, stating that her mother often gets very stressed around Thanksgiving, and that pt feels guilty for not being able to help with chores more due to chronic pain. Pt was supportive and attentive to others in the group. Pt seemed to benefit from support from peers. Will continue IOP tx to promote healthy coping mechanisms, decrease negative thinking patterns, and prevent decompensation.
--- NOTE | 2025-06-15 10:10 | BH.SGPN.GN ---
Behaviors/Verbalizations/Mental Status: [] Eye contact is good. Motor activity is appropriate. Appearance is casual. Speech is Appropriate. Mood is anxious. Affect is congruent. Thoughts are linear and logical. No evidence of psychosis. Client Response/Progress/Benefit: [] Pt was an active participant in group discussions. Attentive during psychoeducation. Contributed during interactive discussions in which peers attempted to define crisis. Group identified examples of crisis. Group also worked together to identify warning signs and unhealthy responses to crisis which included impulsivity, isolation, significant sleep changes, irrational thoughts/behaviors, and suicidal thoughts. Pt identified top 3 personal warning signs as:crying, self-care, and memory issues. Benefited from increased understanding of crisis and awareness of personal responses to crisis. Pt will continue IOP tx to maintain safety, prevent decompensation, stabilize mood, and improve functioning. Narrative Note: []
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
--- NOTE | 2025-06-15 10:55 | BH.DR.ITP ---
Initial Treatment Plan Patient Information Visit Information: ADMISSION DATE: EXPECTED LOS: 6-8 weeks Diagnoses:: MDD, ADHD Problems/Symptoms Problem #1:: MDD Symptom:: fleeting SI, frequent crying spells, excessive guilt, trouble with concentration and memory on top of her baseline/underlying ADHD, low energy, anhedonia, low motivation Problem #2:: ADHD Symptom:: Reported difficulty with concentration going back to childhood, continues to have some residual concentration problems and difficulty with memory
--- NOTE | 2025-06-15 11:00 | BH.NA_ITS ---
Physical Data Vital Signs Pulse Rate: 81 Blood Pressure: 145/83 Height/Weight Height: 1.78 m Weight:: 79.379 kg Weight in Pounds: 175.0 lbs Current Medication Compliance Medication Compliance Do you take your medication as prescribed?: Yes Functional Assessment Sleep Pattern Describe any problems with sleeping: Client states she has been sleeping 6-10 hours per day. Sensory/Communication Assess Communication Problems Do you have difficulty understanding what people are saying?: No Medical Problems/History Musculoskeletal Conditions Musculoskeletal: Other (See comments) (plantar fascitis- both feet) Pain Assessment Do you have acute or chronic pain?: Yes (bilat feet) Surgical History Surgical History Have you had any surgeries? If so, list type and date:: Yes (R foot for plantar fasciitis, gender affirmation surgery) Substance Abuse Substance Abuse Please describe substance abuse in the last 30 days:: Client states she has a history of heavy alcohol use, but states she rarely drinks now. Client has a history of tobacco use but denies current. Client uses marijuana about 2 times per week, usually on the weekends. Client has coffee a few times a week. Mental Status Summary Mental Status Significant Findings/Observations on Appearance and Mood:: Client is alert and oriented x 4. Client is casually groomed. Client is cooperative with assessment. Client makes fair eye contact. Client's voice has normal rate and volume. Client has a somewhat restricted affect. Client makes logical associations and has normal processing. Client denies delusions/hallucinations. Client reports some recent fleeting SI, denies SI at this time. Suicide Assessment Suicidal Ideation Are you currently or have you been suicidal in the past?: Yes Suicidal Intentional Rating Scale (SIRS): Suicidal thoughts (past) (fleeting SI at times, denies at this time, denies plan/intent) Physician Notification Past Psychiatric History MH Treatment Hx Past Psychiatric Medications:: Lyrica (made dizzy), Wellbutrin, Abilify, Buspar, Lexapro Age of first mental health symptoms: Client first took medication around age 23 for mental health. Describe (age, circumstance, etc) any past hospitalizations: None. Current providers for mental health treatment (counselor, psychiatrist, test case developer, etc.): therapist at , Deacon Mccauley SMOKING PIPE MAKER at [facility] (that also orders her weekly Spravato) Fall Risk Assessment Age Age: Less than 60 Mental Status Mental Status: Willing & able to ask for assistance when needed Physical Status Physical Status: No problems Impairments Impairments: None Elimination Elimination: Continent AND independent Gait or Balance Gait or Balance: Walks independently Hx of Falls History of falls in the past 6 months: No known history Medications/Substances Psychotropics:: Antidepressants Medications/substances used within the past 24 hours or ordered to administer: 1-2 of the medications/substances listed above Total Score Total Points:: 1 RN Summary of Impressions Impressions Recommendations Impressions: Psychiatric Issues: major depressive disorder, recurrent severe without psychotic features generalized anxiety disorder ADHD borderline personality disorder Level of Care How do the client's current symptoms and functional deficits support need for this level of care?: Client was in IOP in October 2023 and returns at this time due to mental health impacting daily functioning. Client states she continues to have daily feet pain, which affects her mental health and also makes looking for employment difficult. Client states even if she is able to find jobs, they don't have insurance that she needs or she doesn't have transportation to get to them. Client states finances are a big stressor. Client reports some fleeting SI but denies plan or intent and identifies protective factors. Client does report having anhedonia, decreased motivation and panic attacks at times. IOP will promote gains and prevent further decompensation while providing social support and skills training. Nutritional Screen Height/Weight Height: 1.78 m Weight:: 79.379 kg Weight in Pounds: 175.0 lbs Nutrition Screening Normal Weight: 77.111 kg Normal/Usual Weight in Pounds: 170.0 lbs Have you lost weight without trying: No Have you been eating poorly because of a decreased appetite: No Recently been on tube feeds, TPN, or have any nutritional access device in place: No Have any large open wounds or wounds that are not healing: No Calculated Weight Change: [id number] Change in weight Score: 1 MST Screening Tool Score: 1
--- NOTE | 2025-06-15 11:15 | BH.SGPN.GN ---
Behaviors/Verbalizations/Mental Status: []Pt alert and oriented, appropriate grooming/appearance. Eye contact good. Motor activity appropriate. Speech within normal limits. Affect congruent, mood anxious. Thoughts linear, logical, no signs of hallucinations or delusions. Client Response/Progress/Benefit: []Pt was an active participant in group discussions. Attentive during psychoeducation. In small group pt along with peers developed an active plan for their crisis warning signs. Pt identified three crisis warning signs as well as an action plan for each. One crisis warning sign was poor self-care. Pt identified strategies to help with this such as: use an alarm, make a checklist, and ask for reminders. Benefited from increased awareness of crisis warning signs and by developing crisis intervention strategies. Will continue in IOP to improve distress tolerance, challenge distortions, and prevent decompensation. Narrative Note: []
[2025-06-15 11:26] VITALS: BP 145/83; PULSE 81
--- NOTE | 2025-06-27 09:00 | BH.SGPN.GN ---
Behaviors/Verbalizations/Mental Status: []Pt alert and oriented, disheveled appearance. Eye contact good. Motor activity appropriate. Speech within normal limits. Affect congruent, mood depressed and anxious. Thoughts linear, logical, no signs of hallucinations or delusions. Reviewed pt?s symptom tracker, no risk for suicidal ideation, plan, or intent 06/27/25. Client Response/Progress/Benefit: []Pt was an active participant in group discussions. Attentive. Able to identify mental health wins including getting up early this morning and doing her makeup and not getting car sick this morning. Pt's stressor today is ?Thanksgiving and the holidays are always difficult.? The group offered pt suggests managing this stressor and emotional support which pt reported was helpful. Pt is feeling ?anxious? this morning. Pt receptive to feedback from peers. Benefited from group support, encouragement, and feedback. Progress noted. Pt will continue IOP tx to prevent decompensation, improve daily functioning, and gain healthy coping skills. ? Narrative Note: []
--- NOTE | 2025-06-27 10:10 | BH.SGPN.GN ---
Behaviors/Verbalizations/Mental Status: [] Eye contact is good. Motor activity is appropriate. Appearance is casual. Speech is Appropriate. Mood is euthymic. Affect is full. Thoughts are linear and logical. No evidence of psychosis. Client Response/Progress/Benefit: [] Pt responded well to session, attentive and engaged. Group participated in the discussion defining stigma as well as the stigma associated with mental health. Interactive discussion on common themes associated with mental health stigma which included being crazy, dramatic, lazy, attention-seeking, fake, broken, weak, or stupid. Pt worked with peers to begin discussion of what reinforces stigma, both socially and internally, and this was discussed further in the next group. Pt appeared to benefit from learning about the different types of stigma as well as gaining awareness of how stigma has personally impacted pt. Will continue in IOP to prevent decompensation, increase healthy coping, and improve functioning.
--- NOTE | 2025-06-27 11:22 | PCM.BH.PN_ITS ---
Intake Vital Signs 10/13/23 12:11 06/15/25 10:54 06/15/25 11:27 06/27/25 11:22 Height 1.8 m 1.8 m 1.78 m 1.78 m Weight: 79.379 kg BP 145/83 H Pulse 81 Intake Allergies No Known Allergies Allergy (Verified 06/15/25 11:17) Medications ?Medication ?Instructions ?Recorded ?Confirmed ?Type estradiol 2 mg tablet 2 mg PO BID 10/13/23 5 History duloxetine 30 mg capsule,delayed 30 mg PO BID 30 days #60 caps 11/17/23 06/15/25 Rx release (Cymbalta) esketamine 84 mg (28 mg x 3) nasal mg intranasal 06/15 History spray (Spravato) medroxyprogesterone 2.5 mg tablet 2.5 mg PO DAILY 06/0206/15/25 History methylphenidate HCl 20 mg tablet 20 mg PO TID 06/15/25 06/15/25 History HPI () History of Present Illness HPI: -Current psychiatric medications: Methylphenidate 20 mg 3 times daily, esketamine, Cymbalta 30 mg twice daily -SUBJECTVE: []. Mood is []. Sleeping []. [] appetite. [] crying spells. [] hopelessness. [] thoughts of harming self []. No thoughts of harming others endorsed. AH/VH []. [] tolerating medications without side effects *increase cymbalta, trial lamictal, try remeron Records reviewe, abilify 5mg irritable and fatigued, did well on lithium? did okay on 2.5mg abilify Assessment & Plan () Assessment & Plan (1) Major depressive disorder, recurrent severe without psychotic features: (2) ADHD: Plan Detail Assessment: The patient will begin IOP in Behavioral Health at [facility]. The program's structure, support, education, and therapy aim to prevent deterioration of symptoms and avoid the need for PHP or inpatient hospitalization. I have a reasonable expectation that the patient will make practical improvements in their presenting symptoms and will be discharged to a lower level of care.
--- NOTE | 2025-06-27 11:22 | PCM.BH.PN ---
Intake Vital Signs 10/13/23 12:11 06/15/25 10:54 06/15/25 11:27 06/27/25 11:22 Height 1.8 m 1.8 m 1.78 m 1.78 m Weight: 79.379 kg BP 145/83 H Pulse 81 Intake Visit Reasons: f/u mdd, ADHD Allergies No Known Allergies Allergy (Verified 06/15/25 11:17) Medications ?Medication ?Instructions ?Recorded ?Confirmed ?Type estradiol 2 mg tablet 2 mg PO BID 10/13/23 06/15/25 History duloxetine 30 mg capsule,delayed 30 mg PO BID 30 days #60 caps 11/17/23 06/15/25 Rx release (Cymbalta) esketamine 84 mg (28 mg x 3) nasal mg intranasal 06/15/25 History spray (Spravato) medroxyprogesterone 2.5 mg tablet 2.5 mg PO DAILY 06/15/25 06/15/25 History dextroamphetamine-amphetamine ER 20 mg PO DAILY 06/27/25 06/27/25 History 20 mg 24hr capsule,extend release (Adderall XR) HPI () History of Present Illness History provided by: patient Chief complaint: Depression HPI: -Current psychiatric medications: esketamine, Cymbalta 30 mg twice daily, Adderall 20 mg XR Feeling about the same. Swtiching friend tiralin to addreall from ritalin. Adderall 20 mg XR. since 06/21, lower doses of abilify just didn't like it, -SUBJECTVE: Reports feeling about the same. Due to problems with concentration and depression she is being changed from methylphenidate to Adderall. Has only been on this for less than a week so is unsure how helpful it is going to be. Sleep is inconsistent but this is not changed. Appetite still fine. Reports occasional passing thoughts of SI but no plan or intent to harm herself. No other new or acute complaints at Exam Mental Status Exam- Psych () Appearance bizarre Attitude cooperative Activity/Motor Behavior MSE activity/motor behavior finding no adventitious movements Speech regular rate and regular volume Mood depressed Affect full range and incongruent Thought Process linear and logical Thought Content no delusions Suicidal Ideation passive (Occasional fleeting passive thoughts, no intent) Homicidal Ideation none Attention intact Concentration intact Sensorium/Orientation awake and alert Memory/Cognition intact Insight fair Judgement fair Assessment & Plan () Assessment & Plan (1) Major depressive disorder, recurrent severe without psychotic features: Plan: Remains on esketamine and Cymbalta and is being changed from methylphenidate to Adderall by her primary psych provider. Reports mood is about the same, no active SI. Given she has a medicine that is being actively changed/titrated we will defer additional titrations or adjustments at this time and patient is agreeable to this plan. Still reporting desire to ultimately get off of Cymbalta however she remains concerned that her pain will return, can consider augmenting with an alternate second-generation antipsychotic, Remeron, or Lamictal versus up titration of Cymbalta to see if there is improved in fact on mood versus completely cross tapering. (2) ADHD: Plan: Being switched from methylphenidate to Adderall, this has been less than 1 week, titration and adjustment of stimulants per Deacon Campbell NP, whom she follows with on an outpatient basis Charges/Coding Behavior Health Behavior Health EST Pt E/M: 33051 Est Pt Level IV
--- NOTE | 2025-06-29 10:00 | BH.SGPN.GN ---
Behaviors/Verbalizations/Mental Status: [] Eye contact is fair to good. Motor activity is appropriate. Appearance is casual. Speech WNL. Mood is dysthymic. Affect is congruent. Thoughts are linear and logical. No evidence of psychosis. Client Response/Progress/Benefit: [] Client was an active participant in group discussion and experiential activity. Attentive during psychoeducation on resilience. Participated in interactive discussion with peers on the definition of resilience. Group identified that resiliency can be impacted by; past experiences, personality, and current mental health state. Group also worked together to identify the benefits of being resilient and how it is related to mental health. Worked well with peers in small group in which they identified factors that contribute to resilience. Benefited from increased awareness of resilience and the factors that contribute to building resilience. Will continue in IOP to improve daily functioning, improve use of healthy copng skills, and prevent decompensation.
--- NOTE | 2025-06-29 10:47 | BH.MDN ---
Multi-Disciplinary Note Note 45-min Individual: Time Started:: 09:00 Date: 06/29/25 Purpose of session/treatment goals addressed:: Purpose of session was to address goals 1 and 2 from MTP. Eye Contact:: Fair Motor Activity:: Appropriate Appearance:: Disheveled Speech:: Appropriate Mood:: Depressed Affect:: Constricted Thoughts:: Linear, Logical and No evidence of hallucinations/delusions noted Staff Interventions:: thought challenging, CBT techniques, rapport building, strengths perspective, goal setting and taught coping skills (behavior activation) Client Response:: Client's primary session is out today and client was ok with meeting with this life underwriter for session today. Client stated overall she has been doing ok for the past 2 weeks. Client reported she is trying to adjust to new medications which she noted has been somewhat impacting her motivation. Client stated her motivation level is something that needs to improve. Client reported she feels somewhat hopeless because she is stuck at her parents house due to not having a car. Client stated coming to [facility] has been helpful because it gets her out of the house 3 days a week. Client reported she mostly feels stuck in her bedroom when she is home because when she is out of her room one of her parents will yell at her for something she is doing. Client stated her mom works first shift and her dad works second shift and this adds a layer of challenge for client to be able to do things out of her room because her parents will either say she is too loud or in the way. Client reported she finds it easier to stay in her room but then she will feel isolated because she can't do much besides play video games or watch tv. Client stated she is in the process of having her doctor complete paperwork so she can get involved with occupational rehabilitation. Client reported she has a desire to get a job so she can eventually move out on her own. Client stated she hasn't been able to work for the last 3 years due to having feet issues which make it too challenging to do anything that requires a lot of standing or walking and she can't do computer work because she has difficulty focusing. Client reported the occupational rehabilitation is supposed to help her find a job that would be a good fit for her. Therapist tried to encourage client to come up with activities she can do inside her house to help improve feelings of productivity and engage in things she enjoys. Client agreed focusing on what she can't do right now won't make anything better. Client open to focusing on organizing and cleaning her bedroom to make it feel more homey. Client also open to working on improving self-care and personal hygiene because she noted these things have become more of a challenge. Therapist encouraged client to have a conversation with her parents about making a schedule that would given client time to be in the kitchen to cook or be int he living room area that would be a time best for the family. Client stated she did communicate some concerns with her mom earlier this week and is hoping to see improvement. Risks/Concerns:: Denies suicidal ideation, plan, or intention to date. future oriented. Progress Toward Goals/Plan:: Progress limited as evidenced by client continuing to report depressed symptoms and experiencing low motivation. During session therapist attempted to help brainstorm different strategies that could improve motivation and daily activity however client came up with a reason she wasn't able to do any of the strategies. Therapist gently challenged client's perspective and she came around to focusing on cleaning and organizing her room. Client's lack of transportation is significant barrier that keeps client from getting out of the house, keeps her isolated, and makes it challenging to find a job. Therapist provided [facility] as a resource to improve socialization since they offer transportation. Plan is for client to continue IOP to increase utilization of healthy coping skills, challenge distorted thoughts, and prevent decompensation. Time Stopped:: 09:40
--- NOTE | 2025-06-29 11:03 | BH.SGPN.GN ---
Behaviors/Verbalizations/Mental Status: []Pt alert and oriented, disheveled appearance. Eye contact good. Motor activity appropriate. Speech within normal limits. Affect constricted, mood depressed. Thoughts linear, logical, no signs of hallucinations or delusions. Client Response/Progress/Benefit: [] Pt responded well to session AEB completing the resilience worksheet provided. Pt participated in the discussion and worked cooperatively with group to identify strategies to enhance each of the components discussed. pt reports belief they use the trait ?self-awareness? but pt wants to work on ?self-care in general.? Pt seemed to benefit from discussing strategies for improving personal resilience and identifying resilience traits pt already possesses. Will continue IOP tx to prevent decompensation, increase self-care practices, and increase use of healthy coping skills. Narrative Note: []
== END 2025-07-01 23:59 ==
LOC: BHIOP 08:00
PROVIDERS: Referring Provider Student in an Organized Health Care Education/Training Program; Visit Provider Student in an Organized Health Care Education/Training Program
DX: F33.2 Major depressive disorder, recurrent severe without psychotic features (principal); F41.1 Generalized anxiety disorder; F90.9 Attention-deficit hyperactivity disorder, unspecified type; F60.3 Borderline personality disorder
CPT/HCPCS: H2012; H2020; S9480; 90834; 90837

== ENCOUNTER 2025-07-02 08:05 | Outpatient (RCR) | payer MEDICAID, SELFPAY ==
--- NOTE | 2025-07-02 10:10 | BH.SGPN.GN ---
Behaviors/Verbalizations/Mental Status: []Pt alert and oriented, disheveled appearance. Eye contact fair. Motor activity appropriate. Speech within normal limits. Affect constricted, mood dysthymic. Thoughts linear, logical, no signs of hallucinations or delusions. Client Response/Progress/Benefit: [] Pt responded well to session AEB sharing and listening attentively to others. Group provided examples of types of support (professional, pets, hobbies, community, spouse, abdi, etc) as well as benefits of having social support, including: validation, get perspective, and accountability. Pt also participated in group discussion regarding the barriers to accessing support. Pt identified positive supports to include: fiance, online friends, family, spirituality, and art/cooking. Pt participated in experiential activity illustrating the impact communication, boundaries, and patience play in creating healthy support systems. Pt appeared to benefit from increased knowledge of the benefits of social support and greater self-awareness. Pt to continue IOP to improve consistent use of healthy coping skills. improve motivation, and prevent decompensation.
--- NOTE | 2025-07-02 11:14 | BH.MDN_ITS ---
Multi-Disciplinary Note Note 45-min Individual: Time Started:: 09:15 Date: 07/02/25 Purpose of session/treatment goals addressed:: The purpose of the session was to address treatment goals related to work, address motivation level and work together on completion of work goals. Eye Contact:: Good Motor Activity:: Appropriate Appearance:: Casual Speech:: Appropriate and Tangential Mood:: Anxious Affect:: Congruent Thoughts:: Linear, Logical and No evidence of hallucinations/delusions noted Staff Interventions:: thought challenging, motivational interviewing, mindfulness skills and goal setting Client Response:: Client stated that she has been doing well overall, but mostly trying to adjust to new medication. She stated the new medication is extended release, making her tired when she first takes it, but then unable to sleep once it kicks in. She reported trouble sleeping the night before and was tired today, stating that she only got about three hours of sleep. Client also stated that she feels that the medication is making her stomach more sensitive, but is going to talk with her doctor about these side effects. Pt shared that she was frustrated because of an incident that happened with family and her partner over the weekend. Client stated that she was supposed to have her nephews over to her house to watch a movie, and was excited as she does not get to see them often due to lack of planning and communication between her and her brother. She stated that the power went out, making them unable to have a movie night. Client reported that she spent the rest of the night "crying in the dark" and became frustrated at her partner for not offering to come over and be with her. Client stated that she did not explicitly ask her partner to come over because she does not want to have to feel like she is begging him. However, client states that her partner is not good with social cues, and often does not pickle cutter on what she is trying to get across. Client stated that she had a conversation about this with her partner that went well, stating that she is going to be more direct in communicating her needs with him. 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 After listing out barriers to getting a job, the client stated that on a scale of 1-10 with ten being the most possible, she felt that it was a 0 out of 10 possibility for her to currently get a job. The client and therapist filled out an application for [facility]'s job assistance program, and went over how the barriers that the client identified could be addressed. The client then stated that her possibility of getting a job was now a 2 out of 10. Client stated that after filling out the application, she felt more hopeful and confident about getting a job. Risks/Concerns:: Denies suicidal ideation, plan, or intention to date. future oriented. Progress Toward Goals/Plan:: Client was able to identify barriers to her goals and come up with some practical ways to address them. Client showed improved motivation by filling out an application with the therapist during session. Therapist provided [employer] as a resource to improve socialization since they offer transportation. Client was able to provide insight into her current goals, and has made a goal of contacting [employer] for information be fore her next session. Client continues to struggle with depressive symptoms and lack of motivation that are a barrier to her progress. Plan is for client to continue IOP to increase utilization of healthy coping skills, challenge distorted thoughts, and prevent decompensation. Time Stopped:: 10:00
--- NOTE | 2025-07-02 11:15 | BH.SGPN.GN ---
Behaviors/Verbalizations/Mental Status: [] Client alert and oriented, casually dressed and groomed. Eye contact good. Motor activity appropriate. Speech within normal limits. Affect congruent, mood dysthymic and anxious. Thoughts linear, logical, no signs of hallucinations or delusions. Client Response/Progress/Benefit: [] Client was an active participant throughout AEB contributing to discussion and taking notes. Client processed emotions felt in the activity and how they coped in the moment. Client provided some input during discussion on the types of support our supports can provide. Client reflected on the types of support their current support system provides. Reported after identifying what type of supports they receive; they gained awareness that they could benefit from more educational and emotional supports. Client identified steps to achieve this by being consistent with therapy to learn about their dx. Client seemed to benefit from identifying the type of support client needs to work on improving. Client recommended to continue IOP tx to prevent decompensation, reduce isolation, and increase emotional regulation skills. Narrative Note: []
--- NOTE | 2025-07-06 13:19 | BH.TPR ---
Treatment Plan Review Demographics Date of Admission:: 06/04/25 Date of Treatment Plan Review:: 07/06/25 Admitting Diagnoses:: Generalized Anxiety Disorder, Major Depressive Disorder, Borderline Personality Disorder, ADHD Current Diagnoses:: Generalized Anxiety Disorder, Major Depressive disorder, ADHD Patient Status Patient's Response to Treatment:: Pt has responded well to treatment AEB client consistently attending IOP sessions and responding well to therapist interventions. Pt reports use of coping and communication skills outside of the treatment setting, and continues to build confidence and independence through seeking job services. Client is open and willing to share during group sessions, and reports gaining helpful knowledge and support through group therapy. Status of Current Problems and Symptoms: Client stated that she has been doing well overall, but mostly trying to adjust to new medication. She stated the new medication is extended release, making her tired when she first takes it, but then unable to sleep once it kicks in. She reported trouble sleeping stating that she only got about three hours of sleep. Client also stated that she feels that the medication is making her stomach more sensitive, but is going to talk with her doctor about these side effects. Pt reported feeling frustrated over an incident that happened with family over the weekend, but was able to identify her feelings and better ways to deal with these situations in the future. Client noted that she wants to work on communication skills with her partner so she can receive the support she is needing. Client stated that before she would typically not have a conversation about this with her partner, but now feels that she has to skills to effectively have a conversation without becoming upset. Client reports feeling "a little better" overall but still reports anxiety about relationships and finding a job. Per DSM 5 cross cutting measure at review, clients over all mental health symptoms have increased by one point, due to psychosocial stressors such as family conflict and the upcoming holidays. Client is aware that this increase reflects current stressors and not her overall progress in the program. Progress Problem #1: Problem Name:: Depression Status of Goals:: Obj 1 - ongoing work encouraged. Client has been able to identify negative self-talk messages and replace them with more realistic messages. Obj 2 - ongoing work encouraged. Client has begun to reach out to services that will help increase their engagement in enjoyable activities such as franklyn, reading, and cooking. Client has also been including cooking and other enjoyable activities into their daily routine. Team Recommendations:: Team recommends continued goals and objectives to reinforce healthy coping skills and build resources that help client maintain their progress thus far. Problem #2: Problem Name:: Anxiety Status of Goals:: Obj 1 - Ongoing work encouraged. Client has been able to implement calming skills such as thought challenging and distraction to reduce anxiety and improve overall functioning. Obj 1 - Ongoing work encouraged. Client is working on consistently using conflict resolution skills in interpersonal relationships by improving communication, and using behavioral rehearsal. Team Recommendations:: Team recommends continued goals and objectives to reinforce healthy coping skills and build resources that help client maintain their progress thus far.
--- NOTE | 2025-07-10 09:05 | BH.SGPN.GN ---
Behaviors/Verbalizations/Mental Status: [] Eye contact is good. Motor activity is appropriate. Appearance is casual. Speech is Appropriate. Mood is irritable. Affect is congruent. Thoughts are linear and logical. No evidence of psychosis. Reviewed daily check in sheet and patient reported suicidal ideations this AM. Staff made aware and pt will complete risk assessment. Client Response/Progress/Benefit: [] Pt participated at times during the group discussions. Attentive. She started her check-in discussing positives and was future-oriented however then reported that she hadn't slept in 24 hours. She was vague on reasons for difficulty with sleep. No significant stressors and no ruminations. She was focused on her transportation schedule for IOP noting that she has difficulty remembering which days she is suppose to attend IOP. She has a transportation schedule at home and on her phone. Irritable that she was woken up this AM by transportation to IOP. Benefited from group support, encouragement, and feedback. Will continue in IOP to maintain safety, prevent decompensation, and increase healthy coping. Narrative Note: []
--- NOTE | 2025-07-10 10:00 | BH.SGPN.GN ---
Behaviors/Verbalizations/Mental Status: [] Eye contact good. Motor activity appropriate. Appearance casual. Speech is appropriate. Mood is depressed. Affect is congruent. Thoughts are linear and logical. no evidence of psychosis. Client Response/Progress/Benefit: []Pt was engaged and active participant in group discussion. Engaged an attentive during psychoeducation and interactive discussion on coping skills. why people use unhealthy coping skills. How to replace unhealthy coping skills, internal vs external coping skills. Attentive as peers came up with list of unhealthy coping skills. Pt reported personally that she utilizes isolation as an unhealthy coping skill. Group discussed the effects of maladaptive coping skills on mental health. Benefited from increased understanding of unhealthy coping skills and the need for developing healthy internal and external coping skills. Actively participated during experiential group activity and was able to relate activity to group topic. Will continue IOP to promote healthy coping skills, decrease negative thinking patterns, and prevent decompensation.
--- NOTE | 2025-07-10 11:32 | BH.COMM ---
Communication Note Communication with Client Communication Note: Completed the CSSR-S Frequent Screener with pt as she indicated she has had thoughts of actually killing herself this morning. Per screener, pt risk is moderate to high. Pt indicated fleeting thoughts of killing herself this morning when she realized she has "messed up" and mixed up her scheduled transportation days. However, upon further discussion, pt reports these thoughts as fleeting, lasting no more than "2 minutes". Denies actual plan or active intent this morning. Does indicate brief thoughts of methods to use carbon monoxide ~ 1 week ago, denies intent in nature. Did report "beginning to gather the items to write a suicide note" ~1 week ago as well, but did not follow-through with doing so. Denies any preparatory behaviors since. Denies the thoughts as active in nature. Protective factors noted. Future oriented. Willing to safety plan and noted ability to maintain safety, stating "I don't actually want to do that". Continued frequent monitoring will be done.
--- NOTE | 2025-07-10 13:57 | BH.MDN_ITS ---
Multi-Disciplinary Note Note 45-min Individual: Time Started:: 11:10 Date: 07/10/25 Purpose of session/treatment goals addressed:: The purpose of the session was to address psychosocial stressors that may be contributing to suicidal ideation, treatment goals related to work, and process feelings of worthlessness. Eye Contact:: Fair Motor Activity:: Appropriate Appearance:: Casual Speech:: Appropriate Mood:: Depressed and Dysthymic Affect:: Congruent Thoughts:: Linear, Logical and No evidence of hallucinations/delusions not ed Staff Interventions:: thought challenging, CBT techniques, completed risk assessment / safety planning and goal setting Client Response:: Client completed a [place] suicide severity screener in the beginning of her session due to marking "yes" for active suicidal ideation on daily mood tracker. Her score put her in the high to moderate gregg category. Client denied intent and plan during her session, stating that "I do not actually want to kill myself." Client is future oriented, has protective factors, and safety plan. Client reported having a bad week, stating that she got a lot of bad news over the past couple of days about some of her friends. Client also reported struggling with feelings of worthlessness brought on by a mistake that she had made the previous day. Client stated that whenever she makes a mistake, she engages in negative self talk that increases suicidal ideation, and makes her feel more depressed. The client also reported feeling stressed due to family in her house always being "on edge". Client did note that she heard back from the [employer] and is in the process of completing paperwork to move forward. Client noted using stuffies, cooking, and talking to her fiancé as coping mechanisms that she was using this week to help her cope with all of her stressors. Client connected with thought challenging, making it a goal to combat her negative self-talk with a more realistic and positive affirmation. Client responded well the psychoeducation on the CBT triangle and how her thoughts and feelings can affect her actions, as well as what she can do to break this cycle. Risks/Concerns:: Denies suicidal ideation, plan, or intention to date. future oriented. 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 Client was able to identify her psychosocial stressors and how they were impacting her mood and increase in SI. Client was able to come up with a reframe to one of her most prominent negative cognitions, and identify coping skills that she can use to reduce depressive symptoms this week. Plan is for client to continue IOP to increase utilization of healthy coping skills, challenge distorted thoughts, and prevent decompensation. Time Stopped:: 11:50
--- NOTE | 2025-07-13 09:05 | BH.SGPN.GN ---
Behaviors/Verbalizations/Mental Status: [] Pt alert and oriented, casually dressed and groomed. Eye contact fair. Motor activity appropriate. Speech within normal limits. Affect constricted, mood euthymic. Thoughts linear, logical, no signs of hallucinations or delusions. Reviewed pt’s symptom tracker, no risk for suicidal ideation, plan, or intent 07/13/25. Client Response/Progress/Benefit: []Pt was an active participant in group discussions. Attentive. Able to identify mental health wins including “I wanted to cancel today but I didn’t and my meds are finally figured out, I got a good night’s sleep.” Pt's stressor today is “my relationship is eileen right now.” The group offered pt suggests managing this stressor and emotional support which pt reported was helpful. Pt is feeling “hopeful” this morning. Pt receptive to feedback from peers. Benefited from group support, encouragement, and feedback. Progress noted. Pt will continue IOP tx to prevent decompensation, improve daily functioning, and increase distress tolerance. Narrative Note: []
--- NOTE | 2025-07-13 10:10 | BH.SGPN.GN ---
Behaviors/Verbalizations/Mental Status: []Pt alert and oriented, casually dressed and groomed, Eye contact good. Motor activity appropriate. Speech within normal limits. Affect congruent, mood calm. Thoughts linear, logical, no signs of hallucinations or delusions. Client Response/Progress/Benefit: [] Pt receptive to sessions AEB contributing to group discussion, as well as listening attentively to others and taking notes. Worked with group to brainstorm the positive and negative aspects of stress on physical and mental health as well as the impact of distress on performance, relationships, and mental health. Pt shared their current personal top stressors tend to be: Family, health, and responsibilities. Pt shared when feeling overwhelmed with stress they shut down and disconnect. Benefitted from increased awareness of positive and negative stress as well as how stress impacts individuals. Will continue IOP to prevent decompensation, improve daily functioning, and reduce negative thinking patterns.
--- NOTE | 2025-07-13 11:10 | BH.SGPN.GN ---
Behaviors/Verbalizations/Mental Status: []Eye contact is fair. Motor activity is appropriate. Appearance is casual. Speech is Appropriate. Mood is dysthymic. Affect is constricted. Thoughts are linear and logical. No evidence of psychosis. Client Response/Progress/Benefit: [] Pt was an attentive participant in group discussions and actively engaged during experiential activity. Participated with peers on identifying the connection between the experiential activity and utilization of stress management skills. Attentive during psychoeducation on the 4 A's (Avoid, adapt, alter, accept) of coping with stress. Pt engaged in self-reflection activity in which they identified one of the 4 A's to address one their top stressors. Benefited from increased awareness of stress management strategies. Pt will continue IOP to increase consistent use of healthy coping skills, challenge negative thought patterns, improve daily functioning, and prevent decompensation.
--- NOTE | 2025-07-18 09:00 | BH.SGPN.GN ---
Behaviors/Verbalizations/Mental Status: [] Eye contact is good. Motor activity is appropriate. Appearance is casual. Speech is Appropriate. Mood is depressed. Affect is congruent. Thoughts are linear and logical. No evidence of psychosis. Reviewed daily check in sheet and no reports of suicidal ideations Client Response/Progress/Benefit: [] Pt participated at times during the group discussions. Attentive. Discussed some “struggles with loss” and isolative behaviors. “ I’m here and out of bed”. Attempting behavioral activation and opposite action AEB setting up virtual event with friends out of state. Benefited from group support, encouragement, and feedback. Will continue in IOP to prevent decompensation, increase healthy coping, and improve functioning. Narrative Note: []
--- NOTE | 2025-07-18 10:10 | BH.SGPN.GN ---
Behaviors/Verbalizations/Mental Status: []Motor activity is appropriate. Appearance is casual. Speech is Appropriate. Mood is anxious. Affect is congruent. Thoughts are linear and logical. No evidence of psychosis. Client Response/Progress/Benefit: [] Pt was an engaged participant AEB listening attentively to others, taking notes, and providing feedback in small group discussions. Attentive during psychoeducation AEB by note taking and providing some input. Pt worked along with peers in small groups to define inappropriate guilt and appropriate guilt. Interactive discussion on examples of both inappropriate and appropriate guilt. Pt able to connect impact inappropriate guilt can have on MH. Pt noted that she struggles with inappropriate guilt. Benefited from increased awareness of guilt and the differences between appropriate and inappropriate guilt. Pt to continue IOP tx to improve self-care practices, reduce negative thinking patterns, and improve mood stability. Narrative Note: []
--- NOTE | 2025-07-18 11:10 | BH.SGPN.GN ---
Behaviors/Verbalizations/Mental Status: []Pt alert and oriented, casually dressed and groomed. Eye contact good. Motor activity appropriate. Speech within normal limits. Affect congruent, mood anxious and content. Thoughts linear, logical, no signs of hallucinations or delusions. Client Response/Progress/Benefit: [] Pt engaged participant AEB listening attentively to others and providing input throughout group. Pt worked within their small group to identify strategies to manage inappropriate guilt. Shared a personal example of inappropriate guilt as feeling bad about setting boundaries. Insight this leads to negative self-talk and going back on her boundaries. Pt wants to work on combatting inappropriate guilt by challenging distortions and improving assertive communication. Pt seemed to benefit from learning about strategies to manage appropriate and inappropriate guilt. Pt will continue IOP tx to reduce promote mood stability and prevent decompensation. Narrative Note: []
--- NOTE | 2025-07-20 10:10 | BH.SGPN.GN ---
Behaviors/Verbalizations/Mental Status: []Pt alert and oriented, casually dressed and groomed. Eye contact good. Motor activity appropriate. Speech within normal limits. Affect congruent, mood calm. Thoughts linear, logical, no signs of hallucinations or delusions. Client Response/Progress/Benefit: [] Pt was an attentive and active participant, AEB taking notes and providing input in group discussion. Attentive during psychoeducation. Pt engaged during interactive discussion in which the group defined self-care and discussed its benefits. Group discussed barriers and benefits to self-care. Identified benefits such as being more productive, less physical pain, feeling happier, more patience, and being more capable. Pt participated in small groups where they worked to identify and challenged common self-care “myths”. Benefited from increased awareness of self-care, its benefits, and the consequences of not utilizing self-care strategies. Pt connected with not practicing self-care because it feels selfish or it “won’t make a difference.” Will continue IOP tx to promote use of healthy coping skills, improve daily functioning, and increase self-care practices. Narrative Note: []
--- NOTE | 2025-07-20 11:10 | BH.SGPN.GN ---
Behaviors/Verbalizations/Mental Status: [] Pt alert and oriented, casually dressed and groomed. Eye contact good. Motor activity appropriate. Speech within normal limits. Affect congruent, mood calm. Thoughts linear, logical, no sign of hallucinations or delusions. Client Response/Progress/Benefit: []Pt engaged participant AEB completing the self-care chart worksheet and providing input throughout the discussion. Pt participated in group discussion on various areas of self-care. Pt engaged in self-reflection activity in which pt was asked to identify current self-care practices, and practices that they would like to try. Pt identified professional as the area they want to improve upon. Pt noted they would do this by pursuing a job that was meaningful to them. Pt benefited from completing the self-care chart and gaining insight into current self-care practices, as well as identifying areas in which pt would like to improve upon. Will continue IOP to improve healthy coping mechanisms, decrease negative thought patterns, and prevent decompensation.
--- NOTE | 2025-07-20 13:37 | BH.MDN ---
Multi-Disciplinary Note Note 45-min Individual: Time Started:: 09:00 Date: 07/20/25 Purpose of session/treatment goals addressed:: The purpose of the session was to address continued progress towards goals and process psychosocial stressors. Eye Contact:: Good Motor Activity:: Appropriate Appearance:: Casual Speech:: Appropriate Affect:: Congruent Thoughts:: Linear, Logical and No evidence of hallucinations/delusions noted Staff Interventions:: motivational interviewing, psychoeducation on: (therapist engaged in psychoeducation about behavioral activation.), CBT techniques and goal setting Client Response:: Client was responsive and open during the session. Pt reported they had been feeling good "all things considered" stating that typically around the holidays they feel more stressed and their family tends to be more high strung. 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 Pt stated that they were interested in and enjoyed computer coding, and had a project lined up for another friend who would pay them to make their website. Pt noted that due to ADHD, they were having trouble limiting the time that they spent working on the website, and tended to get hyper fixated. Pt connected with the importance of balancing work with other activates, and made a goal to set a timer while they work so they would remember to take breaks. Pt worked on a habit tracker in session, stating that they feel some routine throughout their day is helpful. They listed hygiene (brushing hair/teeth), eating three meals a day, drinking water as some habits to track throughout the week. Pt stated that they did not finish the paperwork for the [employer] program, but were still interested in pursuing that avenue. Pt made a goal to have paperwork complete and turned in by the next appointment. Risks/Concerns:: Denies suicidal ideation, plan, or intention to date. future oriented. Progress Toward Goals/Plan:: Client showed improved motivation by continuing to pursue a job AEB setting a goal to finish paperwork for the [employer] and taking time to relearn a skill that they enjoyed. Client was able to identify some positives in her life, and has shown increased use of coping skills outside of session. Plan is for client to continue IOP to increase utilization of healthy coping skills, challenge distorted thoughts, and prevent decompensation Time Stopped:: 09:45
--- NOTE | 2025-07-23 09:00 | BH.SGPN.GN ---
Behaviors/Verbalizations/Mental Status: [] Pt alert and oriented, casually dressed and groomed. Eye contact good. Motor activity appropriate. Speech within normal limits. Affect constricted, mood anxious. Thoughts linear, logical, no signs of hallucinations or delusions. Reviewed pt’s symptom tracker, no risk for suicidal ideation, plan, or intent 07/23/25. Client Response/Progress/Benefit: []Pt was an active participant in group discussions. Attentive. 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 Pt is feeling “tired” this morning. Pt receptive to feedback from peers. Benefited from group support, encouragement, and feedback. Progress noted. Pt will continue IOP tx to promote mood stability, increase use of healthy coping skills, and improve self-care. Narrative Note: []
--- NOTE | 2025-07-23 10:10 | BH.SGPN.GN ---
Behaviors/Verbalizations/Mental Status: []Pt alert and oriented, casually dressed and groomed. Eye contact good. Motor activity appropriate. Speech within normal limits. Affect congruent, mood content. Thoughts linear, logical, no signs of hallucinations or delusions. Client Response/Progress/Benefit: [] Pt took notes and contributed to group discussions. Attentive during psychoeducation on growth mindset. Interactive group discussion on fixed mindset in which group verbalized their current fixed mindsets and how they affect their mental health. Pt shared common fixed mindset thoughts they have. Pt shared a personal fixed thought "I’m always going to feel this way” Pt able to connect negative impact fixed thoughts have on functioning. Pt benefited from increased awareness of growth mindset and fixed thoughts and how fixed thoughts impact their mental health. Will continue IOP tx to promote use of healthy coping skills, challenge negative thoughts, and prevent decompensation. Narrative Note: []
--- NOTE | 2025-07-23 11:10 | BH.SGPN.GN ---
Behaviors/Verbalizations/Mental Status: []Pt alert and oriented, casually dressed and groomed. Eye contact fair. Motor activity appropriate. Speech within normal limits. Affect congruent, mood anxious. Thoughts linear, logical, no signs of hallucinations or delusions. Client Response/Progress/Benefit: [] Pt was an active participant during activity and discussion. Pt did well to remain attentive and participate as group worked on identifying characteristics and benefits of adopting a growth mindset. Worked with fellow participants in reframing the example fixed thoughts into growth mindset thoughts. Pt worked on changing own fixed thought. Pt attentive during discussion about different strategies that can help with fostering a growth mindset. Pt appeared to benefit from challenging own thoughts and engaging in the activity. Pt will continue IOP tx to increase consistent use of healthy coping skills, build confidence, and prevent decompensation.
--- NOTE | 2025-07-24 09:05 | BH.SGPN.GN ---
Behaviors/Verbalizations/Mental Status: [] Eye contact is good. Motor activity is appropriate. Appearance is appropriate. Speech is Appropriate. Mood is euthymic. Affect is congruent. Thoughts are linear and logical. No evidence of psychosis. Reviewed daily check in sheet and no reports of suicidal ideations Client Response/Progress/Benefit: [] Pt was an active participant in group discussions. Attentive. " I've been in a weird mood but I'm trying to engage in the holidays". Notes increased focus and mood stabilization which she attributes to IOP, skills, and medication changes. This has allowed her to put time and effort into a project. Feeling optimistic and hopeful. Situational stressors related to the holidays. Progress noted. Benefited from group support, encouragement, and feedback. Will continue in IOP to prevent decompensation, stabilize mood, and increase healthy coping. Narrative Note: []
--- NOTE | 2025-07-24 10:10 | BH.SGPN.GN ---
Behaviors/Verbalizations/Mental Status: []Pt alert and oriented, casually dressed and fairly groomed. Eye contact fair. Motor activity appropriate. Speech within normal limits. Affect constricted, mood dysthymic. Thoughts linear, logical, no signs of hallucinations or delusions. Client Response/Progress/Benefit: [] Pt engaged and actively participating in discussion, taking notes. Pt attentive during psychoeducation about the window of tolerance and noted personal connections. Group identified what contributes to low distress tolerance. The group gained awareness of the three zones of tolerance and pt was able to identify what they look like in each zone. Pt shared personal signs in hyperarousal zone are feeling irritable, racing thoughts, and shaky. Pt shared signs in the window of tolerance, they feel relaxed and focused. Pt appeared to benefit from psychoeducation on distress tolerance and practicing self-reflection. Pt will continue IOP tx to improve daily functioning, improve consistent use of coping strategies and skills, and prevent decompensation.
--- NOTE | 2025-07-24 11:15 | BH.SGPN.GN ---
Behaviors/Verbalizations/Mental Status: []Pt alert and oriented, casually dressed and groomed. Eye contact good. Motor activity appropriate. Speech within normal limits. Affect congruent, mood content. Thoughts linear, logical, no signs of hallucinations or delusions. Client Response/Progress/Benefit: [] Pt responded well to session AEB taking notes and contributing to discussion throughout. Pt engaged as group continued discussion on distress tolerance and the mental health benefits of widening their overall Window of Tolerance. Pt engaged with group in experiential activity provided input on connections between variables in the activity and distress tolerance. Worked within small groups to identify strategies to increase distress tolerance and reduce hyper-arousal and hypo-arousal states. Identified wanting to begin implementing distress tolerance skills of: counting exercises, breathing techniques, and art. Pt appeared to benefit from gaining insight and learning strategies to increase distress tolerance. Pt will continue IOP tx to promote use of healthy coping skills, challenge negative self-talk, and prevent decompensation. Narrative Note: []
--- NOTE | 2025-07-25 09:05 | BH.SGPN.GN ---
Behaviors/Verbalizations/Mental Status: [] Eye contact is good. Motor activity is appropriate. Appearance is casual. Speech is Appropriate. Mood is anxious and depressed. Affect is congruent. Thoughts are linear and logical. No evidence of psychosis. Client Response/Progress/Benefit: [] Pt participated at times during the group discussions. Attentive. Daily symptom tracker notes /5 for depression and anxiety. Shared that he is feeling anxious today. Has been struggling to "get into" the holidays this year however continues to try by completing holiday activities. Identified several situational stressors that has caused distress however utilizing skills to ensure these stressors don't lead to rumination. Following through with behavioral activation which has helped with motivation, purpose, and energy. Progress noted. Benefited from group support, encouragment, and feedback. Will continue in IOP to maintain safety, increase healthy coping, and prevent decompensation. Narrative Note: []
--- NOTE | 2025-07-25 10:15 | BH.SGPN.GN ---
Behaviors/Verbalizations/Mental Status: [] Pt alert and oriented, neat appearance, eye contact good. Motor activity appropriate. Speech within normal limits. Affect congruent. Mood anxious. Thoughts linear, logical, no signs of hallucinations or delusions. Client Response/Progress/Benefit: [] Pt was an active participant in group discussions on defining conflict (internal/external) and possible benefits to conflict. Attentive during psychoeducation on conflict styles (avoidant, accommodating, competing, cooperative) and engaged during group discussion in which the group identified when it is beneficial to use conflict styles and pitfalls of each conflict style. Pt was an active participant in small group exercise in which each group was given a scenario and a conflict resolution technique had to be utilized. Benefited from increased awareness of the impact of conflict styles on mental health. Will continue in IOP to increase coping skills, improve self-confidence, and prevent decompensation.
--- NOTE | 2025-07-25 11:15 | BH.SGPN.GN ---
Behaviors/Verbalizations/Mental Status: []Client alert and oriented, casually dressed and groomed. Eye contact fair-poor (dosing off at times). Motor activity appropriate. Speech within normal limits. Affect congruent, mood calm. Thoughts linear, logical, no signs of hallucinations or delusions. Client Response/Progress/Benefit: [] Pt engaged in session AEB contributing to discussion and engaging in small group. Attentive during discussion on strategies for more effectively managing conflict in personal life. Pt noted current conflict resolution style. Pt given handout on fair fighting rules and how to identify common conflict barriers. Pt indicated what needs improvement in conflict for them which was to use I-statements. Appeared to benefit from gaining strategies to help pt better manage conflict. Will continue IOP tx reinforce healthy coping skills and establish aftercare. Narrative Note: []
--- NOTE | 2025-07-30 08:48 | BH.DS_ITS ---
Discharge Summary Demographics Date of Admission:: 06/04/25 Discharge Date: 07/27/25 Presenting Problems at Admission:: Client is a 35 year old transgender female. Client is engaged to her 42 year old fiancé of 6 years. The client was initially referred to [facility] by her therapist in 2023, but has re-admitted herself this year due to ongoing struggles with depression and anxiety that are affecting her daily functioning. Client reports that her anxiety and depressive symptoms have resurfaced in the past year feeling that she "hasn't made much progress" after discharging from the program. The client reports struggling with chronic pain due to plantar fasciitis which makes her unable to find a job as she cannot stand for long periods of time. The client had surgery on her right foot in 2022, but reports that the pain has not lessened. The client also has been diagnosed with ADHD which she reports makes it extremely difficult for her to concentrate on tasks such as work. The client is currently unemployed due to her mental and physical health issues. The client stated that she feels like a burden to her family who she lives with and currently supports her financially. Client endorsees feelings of worthlessness, sadness, self-hatred, low motivation, poor concentration, and passive thoughts of . The patient endorses some suicidal ideation, and states that she does have a plan if she intended commit suicide, however she does not endorse any intent on following through with this plan, stating that she does not have the desire to kill herself. Discharge Diagnoses:: Major depressive disorder, ADHD, Generalized Anxiety disorder Reason for Discharge:: Client showed improvement is depressive symptoms and a decrease in overall anxiety. Client has showed ongoing motivation and completion of treatment goals, and states that she has been feeling better overall since beginning the program. Treatment Progress During Treatment & Response: Client showed made progress in implementing and learning healthy coping mechanisms to combat depressive symptoms and negative thought patterns. Client improved motivation levels, filling out paperwork in order to begin looking for a job, and taking on [employer] projects at home to earn income. Client decreased negative self-talk through the use of positive and realistic cognitions as well as increased self- compassion. Client reported an overall decrease in anxiety and depression and an increase in ability to cope with distressing situations. Client also improved conflict and communication skills, being able to approach difficult conversations with less anxiety. According to DSM-5 cross cutting measures client has seen an 18% decrease in depressive and anxiety symptoms. Issues Still to be Addressed:: Client has shown progress towards treatment goals while in IOP as indicated by her reduced DSM-5 scores for anxiety and depression. However, client can continue to benefit from ongoing counseling to reinforce healthy coping skills such as thought challenging, opposite action, and distress tolerance. Client acknowledges that she continues to struggle with motivation and negative core beliefs. Client would like to work on further combatting negative core beliefs and improving motivation. Client was encouraged by therapist to continue to engage in opposite action and engage in behavioral activation techniques to improve motivation, as well as thought challenging. Client reported being receptive to this recommendation. Client is encouraged to continue working on these skills. Discharge Recommendations/Instructions:: Client was recommended to follow up with her individual therapist for continuing support after IOP. Client was also recommended to follow up with her PCP for continuity of care. Lastly, client was encouraged to continue seeking employment support. Discharge Handout
== END 2025-07-30 07:21 | disposition home or self-care (01) ==
LOC: BHIOP 08:05
PROVIDERS: Referring Provider Student in an Organized Health Care Education/Training Program; Visit Provider Student in an Organized Health Care Education/Training Program
DX: F41.1 Generalized anxiety disorder (principal); F32.A Depression, unspecified; F60.3 Borderline personality disorder; F90.9 Attention-deficit hyperactivity disorder, unspecified type
CPT/HCPCS: H2012; H2020; S9480; 90834